=== PATIENT | female | born 1960 | race Caucasian/White ===

== ENCOUNTER 2020-12-02 08:42 | Emergency (ER) | payer BC, SELFPAY ==
[2020-12-02] VITALS (39 sets, daily range): BP systolic 114–178; BP diastolic 52–80; PULSE 57–100; RESP 12–26; TEMP 36.6; O2SAT 97–100
--- NOTE | 2020-12-02 08:30 | RT.EKG_ITS ---
APPROVED REPORT Exam: Resting ECG Reason for Exam: chest pressure Patient Location: E HR:72 bpm ECG Measurements Heart Rate 72 AXIS IN 151 P 74 QRSd 114 QRS 56 QT 427 T 61 QTc 468 Conclusion Sinus rhythm...normal P axis, V-rate 60- 99
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
[2020-12-02 09:10] LABS: Abs Immature Grans 0.02 10^3/uL (0.0-0.06); Absolute Basophil Count 0.01 10^3/uL (0.0-0.2); Absolute Eosinophil Count 0.03 10^3/uL (0.0-0.7); Absolute Lymphocyte Count 1.55 10^3/uL (1.2-3.4); Absolute Monocyte Count 0.41 10^3/uL (0.1-0.8); Absolute Neutrophil Count 6.59 10^3/uL (1.2-6.7); Basophils % 0.1; Eosinophils % 0.3; HCT 42.3 % (36.0-46.0); HGB 14.1 g/dL (11.2-15.7); Immature Grans % 0.2; MCH 30.5 pg (27.0-33.0); MCHC 33.3 % (32.0-36.0); MCV 91.6 fL (80-95); MPV 8.8 fL (8.0-11.0); Monocytes % 4.8; Neutrophils % 76.6; Nucleated RBC 0 %; Platelet Count 256 10^3/uL (130-400); RBC 4.62 10^6/uL (3.93-5.22); RDW 11.5 % (11.7-14.6); RDW-SD 38.9 fL; WBC 8.61 10^3/uL (4.4-10.8)
[2020-12-02] MEDS: Aspirin 81 MG CHEW 324 MG CH (09:10)
[2020-12-02] MEDS: Normal Saline Flush 10 ML SYR IVP ×3 (09:10→10:36)
[2020-12-02 09:27] LABS: ALT 22 U/L (14-59); AST 18 U/L (15-37); Albumin 4.2 g/dL (3.4-5.0); Alkaline Phosphatase 129 U/L (46-116); BUN 17 mg/dL (7-18); Bilirubin, Total 0.6 mg/dL (0.2-1.0); Calcium 9.8 mg/dL (8.5-10.1); Chloride 103 mmol/L (98-107); Estimated GFR 56.37 (mL/min/1.73m2); Glucose 123 mg/dL (74-106); Magnesium 1.9 mg/dL (1.8-2.4); Potassium 3.8 mmol/L (3.5-5.1); Sodium 141 mmol/L (136-145); Total Protein 7.4 g/dL (6.4-8.2); Troponin I < 0.05 ng/mL (<0.06)
--- NOTE | 2020-12-02 09:32 | DI.RAD_ITS ---
Exam(s) XR CHEST 2V PA LATERAL EXAM: XR CHEST 2V PA LATERAL CLINICAL HISTORY: chest discomfort TECHNIQUE: 2D digital imaging was performed. COMPARISON: No exams were available for comparison FINDINGS: MEDIASTINUM: Normal. HEART: Normal. PULMONARY VASCULATURE: Normal. LUNGS: Hyperinflated but clear. PLEURAL SPACE: No pleural effusion or pneumothorax. BONE:Normal. IMPRESSION: Pulmonary hyperinflation. No acute pulmonary findings. DATA REPOSITORY: RADIATION DOSE DELIVERED:
[2020-12-02 09:39] LABS: INR 1.1 (0.9-1.1); PTT Activated 24.2 sec (21.0-27.5); Prothrombin Time 10.7 sec (9.3-11.0)
[2020-12-02 09:43] LABS: D-Dimer 193 ng/mlFEU (<500)
[2020-12-02 09:53] LABS: TSH (W/Ref FT4) 0.02 uIU/mL (0.36-3.74)
[2020-12-02] MEDS: Normal Saline 1,000 ML 500 ML IV (10:00)
[2020-12-02] MEDS: Ondansetron 4 MG/2 ML VIAL IVP (10:00)
--- NOTE | 2020-12-02 10:00 | DI.CT_ITS ---
Exam(s) CT BRAIN NECK CTA EXAM: CT BRAIN NECK CTA CLINICAL HISTORY: SINGH, lightheadedness. TECHNIQUE: Imaging Protocol: Axial CT angiography was performed with multi-slice acquisition and mu lti-planar and/or 3D reconstructions. CONTRAST MATERIAL: Intravenous: Omnipaque 350 Contrast volume:85 ml COMPARISON: No exams were available for comparison FINDINGS: CT Head W/O and W contrast: Ventricles and Extra axial spaces: Normal in size and morphology for the patient's age. Hemorrhage: None. Cerebral parenchyma: Normal. Midline shift: None. Brainstem/Cerebellum: Normal. Calvarium: Normal. Visualized Paranasal sinuses/Mastoids: Clear. Bilateral maxillary antrectomies medial frances. Soft Tissues: Unremarkable. Enhancement: Normal. CTA Brain W: Internal Carotid Arteries: Petrous: Normal. Cavernous: Normal. Cerebral: Normal. Middle Cerebral Arteries: Right: No aneurysm, occlusion or significant stenosis. Left: No aneurysm, occlusion or significant stenosis. Anterior Cerebral Arteries: Right: No aneurysm, occlusion or significant stenosis. Left: No aneurysm, occlusion or significant stenosis. Posterior cerebral Arteries: Right: No aneurysm, occlusion or significant stenosis. Left: No aneurysm, occlusion or significant stenosis. Vertebral Arteries: Right: No aneurysm, occlusion or significant stenosis. Left: No aneurysm, occlusion or significant stenosis. Basilar Artery: No aneurysm, occlusion or significant stenosis. CTA Neck W: Common Carotid: Right: No aneurysm, occlusion or significant stenosis. Left: No aneurysm, occlusion or significant stenosis. External Carotid: Right: No aneurysm, occlusion or significant stenosis. Left: No aneurysm, occlusion or significant stenosis. Internal Carotid: Right: No aneurysm, occlusion or significant stenosis. Left: No aneurysm, occlusion or significant stenosis. Vertebral Artery: Right: No aneurysm, occlusion or significant stenosis. Left: No aneurysm, occlusion or significant stenosis. Lung Apices: Normal. Bones: Normal. Soft Tissues: Normal. IMPRESSION: 1. Normal CTA examination of the [place]. 2. Unremarkable CT Head. 3. Normal CTA examination of the neck. RADIATION DOSE DELIVERED: 1,849.47mGy.cm Total DLP DATA REPOSITORY: All CT scans at this facility are submitted to the National Radiology Data Registry (NRDR) Dose Index Registry (DIR) with the [employer] (ACR). RADIATION OPTIMIZATION: All CT scans at this facility use at least one of these dose optimization te chniques: automated exposure control; mA and/or kV adjustment per patient size (includes targeted exa ms where dose is matched to clinical indication); or iterative reconstruction.
[2020-12-02 10:10] LABS: FREE T4 1.74 ng/dL (0.76-1.46)
--- NOTE | 2020-12-02 10:15 | DI.VRAD_ITS ---
PROCEDURE INFORMATION: Exam: XR Chest Exam date and time: 12/02/2020 9:01 AM Age: 60 years old Clinical indication: Pain; Chest pressure TECHNIQUE: Imaging protocol: XR of the chest. Views: 2 views. COMPARISON: No relevant prior studies available. FINDINGS: Lungs: The lungs are mildly hyperinflated, but clear. Pleural spaces: Unremarkable. No pleural effusion. No pneumothorax. Heart/Mediastinum: Unremarkable. No cardiomegaly. Bones/joints: Unremarkable. IMPRESSION: Mildly hyperinflated, but clear lungs. Dictated and Authenticated by: Adolfo Osborne MD. Ordering:SAM Craft MD
[2020-12-02] MEDS: Normal Saline - Diluent 50 ML VIAL IV (10:33)
[2020-12-02] MEDS: Omnipaque 350 MG/ML 100 ML BTL IJ (10:33)
--- NOTE | 2020-12-02 11:06 | DI.VRAD_ITS ---
PROCEDURE INFORMATION: Exam: CT Angiography Head With Contrast, Arteriography Exam date and time: 12/02/2020 10:06 AM Age: 60 years old Clinical indication: Other: SINGH, lightheadedness TECHNIQUE: Imaging protocol: Computed tomography angiography of the head with contrast. Exam focused on the arteries. 3D rendering (Not supervised by radiologist): MIP and/or 3D reconstructed images were created by the technologist. Radiation optimization: All CT scans at this facility use at least one of these dose optimization techniques: automated exposure control; mA and/or kV adjustment per patient size (includes targeted exams where dose is matched to clinical indication); or iterative reconstruction. Contrast material: OMNIPAQUE 350; Contrast volume: 85 ml; Contrast route: INTRAVENOUS (IV); COMPARISON: No relevant prior studies available. FINDINGS: ANTERIOR CIRCULATION: Right internal carotid artery: Unremarkable. Intracranial segment is patent with no significant stenosis. No aneurysm. Right middle cerebral artery: Unremarkable. No occlusion or significant stenosis. No aneurysm. Right anterior cerebral artery: Unremarkable. No occlusion or significant stenosis. No aneurysm. Left internal carotid artery: Unremarkable. Intracranial segment is patent with no significant stenosis. No aneurysm. Left middle cerebral artery: Unremarkable. No occlusion or significant stenosis. No aneurysm. Left anterior cerebral artery: Unremarkable. No occlusion or significant stenosis. No aneurysm. POSTERIOR CIRCULATION: Right vertebral artery: Unremarkable. No occlusion or significant stenosis. No aneurysm. Left vertebral artery: Unremarkable. No occlusion or significant stenosis. No aneurysm. Basilar artery: Unremarkable. No occlusion or significant stenosis. No aneurysm. Right posterior cerebral artery: Unremarkable. No occlusion or significant stenosis. No aneurysm. Left posterior cerebral artery: Unremarkable. No occlusion or significant stenosis. No aneurysm. Brain: No definite mass, mass effect, or midline shift. Cerebral ventricles: No ventriculomegaly. Bones/joints: Unremarkable. No acute fracture. Soft tissues: Unremarkable. Other findings: Prior bilateral antrectomies. IMPRESSION: No large vessel occlusion. No aneurysm. PROCEDURE INFORMATION: Exam: CT Angiography Neck With Contrast Exam date and time: 12/02/2020 10:06 AM Age: 60 years old Clinical indication: Other: SINGH, lightheadedness TECHNIQUE: Imaging protocol: Computed tomography angiography of the neck with contrast. 3D rendering (Not supervised by radiologist): MIP and/or 3D reconstructed images were created by the technologist. Radiation optimization: All CT scans at this facility use at least one of these dose optimization techniques: automated exposure control; mA and/or kV adjustment per patient size (includes targeted exams where dose is matched to clinical indication); or iterative reconstruction. Contrast material: OMNIPAQUE 350; Contrast volume: 85 ml; Contrast route: INTRAVENOUS (IV); COMPARISON: No relevant prior studies available. FINDINGS: Right common carotid artery: No stenosis. No dissection or occlusion. Right internal carotid artery: No stenosis of the extracranial segment. No dissection or occlusion. Right external carotid artery: No occlusion or stenosis of the origin. Left common carotid artery: No stenosis. No dissection or occlusion. Mild atherosclerotic disease. Left internal carotid artery: No stenosis of the extracranial segment. No dissection or occlusion. Left external carotid artery: No occlusion or stenosis of the origin. Right vertebral artery: No stenosis. No dissection or occlusion. Left vertebral artery: No stenosis. No dissection or occlusion. Soft tissues: Normal. No significant soft tissue swelling. Bones/joints: No acute fracture. IMPRESSION: No stenosis or occlusion. Less than 50% stenosis of the internal carotid arteries bilaterally. REFERENCES: NASCET CRITERIA. The degree of internal carotid artery stenosis is based on NASCET criteria. Normal is no stenosis. Mild is less than 50% stenosis. Moderate is 50-69% stenosis. Severe is 70% to 99% stenosis. Total occlusion is no detectable patent lumen. Dictated and Authenticated by: Leonor Lanier MD. Ordering:SAM Craft MD
== END 2020-12-02 12:25 | disposition home or self-care (01) ==
PROVIDERS: Emergency Provider Physician Assistant
DX: I95.1 Orthostatic hypotension (principal); R42 Dizziness and giddiness; F41.9 Anxiety disorder, unspecified; R07.89 Other chest pain
CPT/HCPCS: 36415; 70496; 70498; 80053; 93005; 96361; 96374; 99285; 71046; 83735; 84439; 84443; 84484; 85025; 85379; 85610; 85730; 93010; 99284; J2405; J3490

== ENCOUNTER 2024-02-10 14:59 | Emergency (ER) | payer BC, SELFPAY ==
[2024-02-10] VITALS (34 sets, daily range): BP systolic 132–163; BP diastolic 49–73; PULSE 56–91; RESP 14–30; TEMP 35.8; O2SAT 96–99
--- NOTE | 2024-02-10 15:00 | RT.EKG_ITS ---
APPROVED REPORT Exam: Resting ECG Reason for Exam: chest pain Patient Location: E HR:82 bpm ECG Measurements Heart Rate 82 AXIS HI 139 P 82 QRSd 106 QRS 64 QT 417 T 73 QTc 486 Conclusion Sinus rhythm...normal P axis, V-rate 60- 99 Probable lateral infarct, old...Q>35mS, abnormal ST-T, V5-6 I aVL
--- OUTSIDE RECORDS SUMMARY | 2024-02-10 15:34 | XMS_ITS | Clinical Summary ---
Author Organization [facility] Address [phone] [facility] [email or web address] [address] Care Team Providers Care Broom Bundler Name Role Phone Gulshan Aquino MD Primary Care Provider Allergies Active Allergy Reactions Criticality Noted Date Comments Codeine Unknown 03/10/2014 Active Problems Problem Noted Date Diagnosed Date Hypothyroidism 03/09/2014 Overview: Hypothyroidism Multinodular goiter 03/09/2014 Overview: Multinodular goiter Osteopenia 03/09/2014 Overview: Osteopenia Family History Medical History Relation Comments Heart attack Father Myocardial infar ction Relation Status Comments Father Social History Tobacco Use Types Packs/Day Years Used Date Smoking Tobacco: Every Day Sex and Gender Information Value Date Recorded Sex Assigned at Not on file Gender Identity Not on file Sexual Orientation Not on file Last Filed Vital Signs Vital Sign Reading Time Taken Comments Blood Pressure 116/71 09/05/2014 11:46 AM EDT Pulse 101 09/05/2014 11:46 AM EDT Temperature - - Respiratory Rate - - Oxygen Saturation - - Inhaled Oxygen Concentration - - Weight 58.1 kg (128 lb) 09/05/2014 11:46 AM EDT Height 160 cm (5' 3) 06/29/2014 10:53 AM EST Body Mass Index 22.67 06/29/2014 10:53 AM EST Plan of Treatment Not on file Medical Devices Not on file Care Teams Broom Bundler Relationship Specialty Start Date End Date Gulshan Aquino MD [address] [address] PCP - General Allergy 02/16/14 Additional Source Comments The information contained in this document represents components of the legal health record. It is not the complete legal health record.[facility]
--- OUTSIDE RECORDS SUMMARY | 2024-02-10 15:34 | XMS_ITS | Continuity of Care Document ---
Author Name [facility] Address [address] [place] [address] Organization [facility] Address [address] [place] [address] Support Name Relationship Address Phone Gulshan Aquino Primary Care Provider [address] [place], [place] [phone] Gulshan Aquino Family Provider [address] [place], [place] [phone] Luz Torres Attending Provider [place] [id number] [address] [address] Allergies, Adverse Reactions, Alerts Allergen Type Severity Reaction Last Updated Verified Status codeine Adverse Reaction Unknown SHAKING, NAUSEA November 16, 2018 Y Active Medications Active Medications Medication Dose Units Route Sig Qty Start Date St [facility] [place] Thyroid 90 MG PO EVERY MORNING Mar 2018 Active Atorvastatin 1 TAB PO DAILY August 18 019 Active Multi-Vitamin Daily 1 TAB PO DAILY Zacarias h 2018 Active L.Acidoph,Paracasei, B.Lactis [Probiotic] 1 EACH PO DAILY November 09, 2018 Active Multivit-Min/Iron/Foli c/Lutein [Centrum Silver Women Tablet] 1 TAB PO DAILY November 09, 2018 Active Simethicone [Phazyme] 180 MG PO DAILY Ju ne 2018 Active Vitamin D3 Complete Caplet 25 MCG PO DAILY November 09, 2018 Active Atorvastatin [Lipitor] 10 MG PO DAILY J une 2018 Active Docusate Sodium 100 MG PO TWICE A D AY PRN For Constipation 60 November 17, 2018 Active Oxycodone [Roxicodone] 5 MG PO EV HILDA 4 HOURS PRN For Moderate Pain (4-6) 5 November 17, 2018 Active Ibuprofen [Motrin] 600 MG PO EVERY 6 HOURS PRN For Mild Pain (1-3) 60 November 17, 2018 Active Discontinued Medications Medication Dose Units Route Sig Qty Start Date Discontinued Date Status [place] Thyroid 15 MG PO EVERY EVENING August 18, 2018 November 09, 2018 Discontinued Problem List Active Problems Medical Problem Onset Date Status 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 Ref. Range Result Co mment Urine Color December 01, 2018 5:18pm Yellow Urine Clarity December 01, 2018 5:18pm Clear Urine pH December 01, 2018 5:18pm 5.0 5.0-8.0 Urine Specific [place] December 01, 2018 5:18pm 1.019 1.003-1.030 Urine Blood December 01, 2018 5:18pm Negative mg/dl Urine Protein December 01, 2018 5:18pm Negative mg/dl Urine Glucose (UA) December 01, 2018 5:18pm Negative mg/dl Urine Ketones December 01, 2018 5:18pm Negative mg/dl Urine Nitrate December 01, 2018 5:18pm Negative Urine Bilirubin December 01, 2018 5:18pm Negative mg/dl Urine Urobilinogen December 01, 2018 5:18pm Normal mg/dl Urine Leukocyte Esterase December 01, 2018 5:18pm Negative Advance Directives Advance Directive Response Recorded Date/ Time Advance Directives No November 05, 2018 2:50pm Health Care Proxy No November 05, 2018 2 :50pm Chief Complaint and Reason for Visit Encounter Admit Date Chief Complaint Reason for V isit Departed Clinical December 01, 2018 11:15am 2 WKS PO AFTER SURGERY ON 11/16/18 Hospital Discharge Instructions No known hospital discharge instructions. Hospital Discharge Medications Medication Dose Units Route Sig Qty Days Order Date Status Instructions [place] Thyroid 15 MG PO EVERY EVENING August 18, 2018 Discontinued [place] Thyroid 90 MG PO EVERY MORNING August 18, 2018 Active Atorvastatin 1 TAB PO DAILY Jul Active Multi-Vitamin Daily 1 TAB PO DAILY August 18, 2018 Active L.Acidoph,Para casei, B.Lactis 1 EACH PO DAILY November 09, 2018 Active Multivit-Min/I eileen/Folic/Lute in 1 TAB PO DAILY November 09, 2018 Active Simethicone 180 MG PO DAILY November 09, 2018 Active Vitamin D3 Complete Caplet 25 MCG PO DAILY November 09, 2018 Active Atorvastatin 10 MG PO DAILY Justin 2018 Active Docusate Sodium 100 MG PO TWICE A DAY PRN For Constipation 60 November 17, 2018 Active Oxycodone 5 MG PO EVERY 4 HOURS PRN For Moderate Pain (4-6) 5 November 17, 2018 Active Ibuprofen 600 MG PO EVERY 6 HOURS PRN For Mild Pain (1-3) 60 November 17, 2018 Active Encounters Encounter Facility Location Admit/Visit Date Discharge/Departure Date Attending Provider Departed Referred [facility] Lab - After Hours Blood Draws December 01, 2018 5:17pm December 01, 2018 5:18pm Luz Torres Departed Clinical [facility] December 01, 2018 2:32pm December 01, 2018 2:33pm Anup Murillo Departed Clinical [facility] December 01, 2018 11:15am December 01, 2018 11:16am Luz Torres Discharged Inpatient [facility] Cmp 7 November 16, 2018 3:00pm November 17, 2018 10:35am Anup Murillo Functional Status Query Response Date Recorded Comment Arousable To Name November 17, 2018 8:00am Comprehension Ability Understands Concepts November 17 8:00am Level of Consciousness Awake Alert Appropriate Follows Commands November 17, 2018 8:00am Patient Behavior Appropriate Cooperative November 17, 2018 8:00am Query Response Date Recorded Comment Oral Care Teeth Brushing November 17, 2018 9:55am Immunizations No known immunizations. Payers Payer Name Policy Type Covered Libertarian Covered Libertarian Id Relationship Subscriber Subscriber Id BC [place] O Blue [employer] Priya Soriano [id number] Self / Same As Patient Priya Soriano [id number] [employer] [place] (Out of State) O Commercial Priya Soriano [id number] Self / Same As Patient Priya Soriano [id number] Self Pay Personal Payment (Doe - No Insurance) Plan of Care No Known Plan of Care Information Social History Query Response Date Recorded Comment Is Anyone Dependent on your Care? No October 3:22pm Lives With Family November 09, 2018 3:22pm Living Situation Private Home November 09, 2018 3:22pm Query Response Start Date Stop Date Smoking Status Current every day smoker Vital Signs Vital Reading Result Reference Range Collection Date/Time Height 1.6 m November 16, 2018 6 :54am Weight 53.977 kg November 17, 2018 9 :17am Temperature 98.7 F 97.6 F-99.6 F November 17, 2018 4:51am Pulse 64 BPM 60-90 November 17, 2018 4 :51am Respiration 18 RPM 12-24 November 17, 2018 4 :51am Pulse Oximetry 98 % 95-100 November 17, 2018 8:00am Blood Pressure Systolic 103 90-140 November 17, 2018 4:51am Blood Pressure Diastolic 42 60-90 Oct 4:51am Body Mass Index 21.1 November 25 9 4:30pm
--- OUTSIDE RECORDS SUMMARY | 2024-02-10 15:34 | XMS_ITS | Encounter Summary ---
Author Organization [facility] Address [phone] [facility] [employer] [place] [address] Care Team Providers Care Salesperson Recreational Vehicles Name Role Phone Gulshan Aquino MD Primary Care Provider Encounter Details Date Type Department Care Team (Latest Contact Info) Description 03/09/2014 12:13 PM EDT - 03/09/2014 11:59 PM EDT Hospital Encounter [facility] [address] [place] [address] Mao Paul MD Discharge Disposition: Home or Self Care Social History Tobacco Use Types Packs/Day Years Used Date Smoking Tobacco: Never Assessed Sex and Gender Information Value Date Recorded Sex Assigned at Not on file Gender Identity Not on file Sexual Orientation Not on file documented as of this encounter Plan of Treatment Not on file documented as of this encounter Visit Diagnoses Not on filedocumented in this encounter Care Teams Salesperson Recreational Vehicles Relationship Specialty Start Date End Date Glushan Aquino MD [address] [address] PCP - General Allergy 02/16/14 documented as of this encounter Additional Source Comments The information contained in this document represents components of the legal health record. It is not the complete legal health record.[facility]
--- OUTSIDE RECORDS SUMMARY | 2024-02-10 15:35 | XMS_ITS | Continuity of Care Document ---
Author Organization [facility] Address [address] [place] [address] Phone Care Team Providers Care Building Associate Name Role Phone Gulshan Aquino Primary Care Provider [phone] Gulshan Aquino Attending Provider Gulshan Aquino Family Provider Chief Complaint and Reason for Visit Chief Complaint CURRENT SMOKER F17.2 10 R10.30 LOWER ABD PAIN Allergies, Adverse Reactions, Alerts Allergen Type Severity Reaction Last Updated Verified Status codeine Adverse Reaction Unknown SHAKING, NAUSEA Nov 9:46am Yes Active Social History Smoking Status Status Start Date End Date Date of Observa tion Smokes tobacco daily (finding) December 22, 2020 9:39am Observation Status Observation Response Date of Response Lives With Family November 09, 2018 3:22pm Additional Data Assigned Sex Female Family History Relationship Condition Age at Onset Recorded Date/T harley family member Malignant neoplasm of colon Unknown Problems Active Problems Medical Problem Onset Date Status 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 Cyst of ovary, left Active Medications Medication Status Dose Units Route Directions Qty Days St art Date End Date Instructions [place] Thyroid Discontinue d 15 MG PO EVERY EVENING August 18, 2018 12:00a m November 09, 2018 3:29p m [place] Thyroid Active 90 MG PO EVERY MORNING August 18, 2018 12:00a m Atorvastatin Active 1 TAB PO DAILY 2018 12:00a m Multi-Vitamin Daily Active 1 TAB PO DAILY August 18, 2018 12:00a m Simethicone (Phazyme) 180 MG capsule Active 180 MG PO DAILY November 09, 2018 12:00a m Multivit-Min- Ffgk-Zs-Iwlud n (Centrum Silver Women) 1 EACH tablet Active 1 TAB PO DAILY November 09, 2018 12:00a m Amita Mireles B. Lactis Active 1 EACH PO DAILY November 09, 2018 12:00a m Vitamin D3 Complete Caplet Active 25 MCG PO DAILY November 09, 2018 12:00a m Atorvastatin Active 10 MG PO DAILY November 17, 2018 12:00a m Docusate Sodium Active 100 MG PO TWICE A DAY 60 November 17, 2018 8:12am Oxycodone Discontinue d 5 MG PO EVERY 4 HOURS 5 November 17, 2018 12:00a m December 22, 2020 10:03 am Ibuprofen Active 600 MG PO EVERY 6 HOURS 60 November 17, 2018 8:22am Medical Equipment Device Date Implanted Device Details MESH SURG RESTORELLE [id number] November 16, 2018 Procedures Procedure Date Performed Status CT lung ca screen low dose March 15, 2022 3: 07pm completed US abdomen complete March 19, 2022 9:36am co mpleted Relevant Diagnostic Tests and/or Laboratory Data Diagnostic Imaging Reports Report Dictated Date/Time Dictated By Status Radiology Report March 19, 2022 9:00am Casie Rodriguez MD completed [facility] at [address] [address] Patient Name: Priya Soriano Medical Record#: [id number] 2 Address: [address] [place] [address] City/State/Zip: [place] [address]: Ilia Aquino Insurance: [employer] (Out o f State) HMO /Age/Sex: 1960/61/F Self Pay Admit/Reg Date: 03/15/[address]: Gulshan Aquino Location: [facility]/ PCP: Gulshan Aquino Date of Service: 03/15/22 Order (s): CT lung ca screen low dose CPT Code: 01772 Report Number: [id number] Reason for Exam: SMOKER Patient name: Priya Soriano Exam: CT lung ca screen low dose Procedure Date and Time: 03/15/2022 3:17 PM Indication: SMOKER Comparison: None. Age: 61 Smoking History: 30 pack years. Status: Current smoker TECHNIQUE: Serial 2.5 mm unenhanced helically acquired images were obtained from the thoracic inlet through the lung bases using low dose protocol. Sagittal and coronal reformatted images are also submitted. Total exam DLP (Dose Length Product) 55 mGy-cm. CT Scanner utilized a dose reduction technique. FINDINGS: MEDIASTINUM/VESSELS: No mediastinal or hilar lymphadenopathy. The mediastinal vascular structures appear unremarkable for patient age. There is dense coronary calcifications. LUNGS: Mild upper lobe central emphysema. Lung nodules: 7 mm groundglass right upper lobe (2:151) Calcified granuloma right upper lobe (2:144) There are multiple scattered impacted bronchi. PLEURA: No pleural effusion. No significant pleural based abnormality. No pneumothorax. SOFT TISSUES/BONES: Unremarkable. UPPER ABDOMEN: Unremarkable IMPRESSION: Mild emphysema Micronodules Multiple impacted bronchi throughout the lungs. Coronary calcifications Lung-RADS: 2 Modifier: S *Lung-RADS Assessment Categories* Category Category Descriptor Management [address] images and/or comparison with prior chest CT exam indicated 1 Negative Continue annual screening with LDCT in 12 months 2 Benign Appearance Continue annual screening with LDCT in 12 months 3 Probably Benign 6 month LDCT 4A Suspicious 3 month LDCT; PET/CT may be used if >= 8 mm solid component 4B Suspicious Chest CT, PET/CT (if >= 8 mm solid component) and/or tissue sampling indicated by comorbidities S Significant Other Finding C Prior lung cancer Dictated By: Casie Rodriguez MD 03/19/22899 Signed By: Casie Rodriguez MD 03/19/22910 TD/TT: 03/19/22899Tech: [id number] cc: [email or web address]* Gulshan Aquino Report Dictated Date/Time Dictated By Status Radiology Report March 19, 2022 11:36am Chriss Lester MD completed [facility] at [address] [address] Patient Name: Priya Soriano Medical Record#: [id number] 2 Address: [address] [place] [address] City/State/Zip: [place] [address]: Ilia Aquino Insurance: Blue [employer] (Out o f State) HMO /Age/Sex: 1960/61/F Self Pay Admit/Reg Date: 03/19/[address]: Gulshan Aquino [facility] PCP: Gulshan Aquino Date of Service: 03/19/22 Order (s): US abdomen complete CPT Code: 27160 Report Number: [id number] Reason for Exam: ABDOMINAL PAIN EXAMINATION: ABDOMINAL ULTRASOUND COMPLETE: CLINICAL INFORMATION: Abdominal pain/right lower quadrant pain; further evaluation. COMPARISON: July 20, 2020. TECHNIQUE: Routine grayscale and color Doppler imaging is provided for interpretation. FINDINGS: Focal scanning right lower quadrant at site of pain is negative. LIVER: Normal echo architecture. No focal hepatic lesion. PANCREAS: Normal. GALLBLADDER: Status post cholecystectomy. BILIARY: No intrahepatic biliary dilatation. CBD measures 7.5 mm. RENAL: The kidneys are normal in size and echotexture with the right kidney measuring [9.8 cm] and the left kidney measuring [9.0] cm in maximal longitudinal dimension. There is no hydronephrosis or nephrolithiasis identified. 10 mm right renal cyst. SPLEEN: The spleen is not enlarged (8.7 cm). No focal splenic lesion. There is no intraperitoneal free fluid identified. The visualized portions of the upper abdominal aorta and IVC appear unremarkable. Doppler interrogation demonstrate hepatopetal portal flow. IMPRESSION: 1. STATUS POST CHOLECYSTECTOMY. 2. NO BILIARY DILATATION. 3. RIGHT LOWER QUADRANT SCANNING IS NEGATIVE. Dictated By: Chriss Lester MD 03/19/22 1136 Signed By: Chriss Lester MD 03/19/22 1203 TD/TT: 03/19/22 1136Tech: [id number] cc: [email or web address]* Gulshan Aquino Advance Directives Advance Directive Response Recorded Date/ Time Advance Directives Yes January 12:37pm Health Care Proxy Yes January 12:37pm Insurance Providers Guarantor Priya Soriano Address [address] [place] [id number] Contact Info. Home Phone: Payer Policy Id Coverage Id Subscriber's Name Subscriber Id Effective Date Expiration Date [facility] Hank [id number] [id number] Priya Soriano [id number] [facility] (Out of State) [facility] [id number] Priya Teran Bo [id number] Self Pay Self N/A Encounters Encounter Location(s) Arrival/Admit Date Discharge/Depart Date Provider(s) Departed Clinical [facility] CAT Scan March 15, 2022 3:03pm March 15, 2022 3:04pm Gulshan Aquino Registered Clinical [facility] Ultrasound March 19, 2022 9:11am Gulshan Aquino
--- OUTSIDE RECORDS SUMMARY | 2024-02-10 15:35 | XMS_ITS | Continuity of Care Document ---
Author Organization [facility] Address [address] [place] [address] Phone Care Team Providers Care Windows Application Developer Name Role Phone Gulshan Aquino Primary Care Provider Gulshan Aquino Attending Provider Gulshan Aquino Family [...] Days St art Date End Date Instructions [place] Thyroid Discontinue d 15 MG PO EVERY EVENING August 18, 2018 12:00a m November 09, 2018 3:29p m [place] Thyroid Active 90 MG PO EVERY MORNING August 18, 2018 12:00a m Atorvastatin Active 1 TAB PO DAILY 2018 12:00a m Multi-Vitamin Daily Active 1 TAB PO DAILY August 18, 2018 12:00a m Simethicone (Phazyme) 180 MG capsule Active 180 MG PO DAILY November 09, 2018 12:00a m Multivit-Min- Pqtz-Qq-Htwxb n (Centrum Silver Women) 1 EACH tablet [...] 19, 2022 9:00am Casie Rodriguez MD completed [facility] at [address] [address] Patient Name: Priya Soriano Medical Record#: [id number] 2 Address: [address] [place] [address] City/State/Zip: [place] [address]: Ilia Aquino Insurance: [employer] (Out o f State) HMO /Age/Sex: 1960/61/F Self Pay Admit/Reg Date: 03/15/[address]: Gulshan Aquino Location: [facility]/ PCP: Gulshan Aquino Date of Service: 03/15/22 Order (s): CT lung ca screen low dose CPT Code: 22364 Report Number: [id number] Reason for Exam: SMOKER Patient name: Priya [...] 19, 2022 11:36am Chriss Lester MD completed [facility] at [address] [address] Patient Name: Priya Soriano Medical Record#: [id number] 2 Address: [address] [place] [address] City/State/Zip: [place] [address]: Ilia Aquino Insurance: [employer] (Out o f State) HMO /Age/Sex: 1960/61/F Self Pay Admit/Reg Date: 03/19/[address]: Gulshan Aquino [facility] PCP: Gulshan Aquino Date of Service: 03/19/22 Order (s): US abdomen complete CPT Code: 99145 Report Number: [id number] Reason for Exam: ABDOMINAL PAIN EXAMINATION: ABDOMINAL [...] 12:37pm Insurance Providers Guarantor Priya Soriano Address [address] [place] [id number] Contact Info. Home Phone: Payer Policy Id Coverage Id Subscriber's Name Subscriber Id Effective Date Expiration Date [facility] Hank [id number] Priya Soriano [id number] [facility] (Out of State) [facility] [id number] Priya Teran Bo [id number] Self Pay Self N/A Encounters Encounter Location(s) Arrival/Admit Date Discharge/Depart Date Provider(s) Departed Clinical [facility]- CAT Scan March 15, 2022 3:03pm March 15, 2022 3:04pm Gulshan Aquino Departed [facility] Ultrasound March 19, 2022 9:11am March 19, 2022 9:12am Gulshan Aquino
--- OUTSIDE RECORDS SUMMARY | 2024-02-10 15:35 | XMS_ITS | Continuity of Care Document ---
Author Name [facility] Address [address] [place] [address] Organization [facility] Address [address] [place] [address] Support Name Relationship Address Phone Gulshan Aquino Primary Care Provider [address] [place], [place] [phone] Gulshan Aquino Family Provider [address] [place], [place] [phone] Anup Murillo Attending Provider [address] [address] Allergies, Adverse Reactions, Alerts Allergen Type Severity Reaction Last Updated Verified Status codeine Adverse Reaction Unknown SHAKING, NAUSEA November 16, 2018 Y Active Medications Active Medications Medication Dose Units Route Sig Qty Start Date St [facility] [place] Thyroid 90 MG PO EVERY MORNING Jul Active Atorvastatin 1 TAB PO DAILY August [...] Sig Qty Start Date Discontinued Date Status [place] Thyroid 15 MG PO EVERY EVENING August [...] 01, 2018 5:18pm 5.0 5.0-8.0 Urine Specific [place] December 01, 2018 5:18pm 1.019 1.003-1.030 Urine [...] V isit Departed Clinical December 01, 2018 2:32pm 2 WEEKS POST OP ON 11/16/18 Hospital Discharge Instructions No known hospital discharge instructions. Hospital Discharge Medications Medication Dose Units Route Sig Qty Days Order Date Status Instructions [place] Thyroid 15 MG PO EVERY EVENING August 18, 2018 Discontinued [place] Thyroid 90 MG PO EVERY MORNING August [...] 2018 Active Atorvastatin 10 MG PO DAILY Oct Active Docusate Sodium 100 MG PO TWICE A DAY PRN For Constipation 60 November 17, 2018 Active Oxycodone 5 MG PO EVERY 4 HOURS PRN For Moderate Pain (4-6) 5 November 17, 2018 Active Ibuprofen 600 MG PO EVERY 6 HOURS PRN For Mild Pain (1-3) 60 November 17, 2018 Active Encounters Encounter Facility Location Admit/Visit Date Discharge/Departure Date Attending Provider Departed Referred [facility] Lab - After Hours Blood Draws December 01, 2018 5:17pm December 01, 2018 5:18pm Luz Torres Departed Clinical [facility] December 01, 2018 2:32pm December 01, 2018 2:33pm Anup Murillo Departed Clinical [facility] December 01, 2018 11:15am December 01, 2018 11:16am Luz Torres Discharged Inpatient [facility] Cmp 7 November 16, 2018 3:00pm [...] immunizations. Payers Payer Name Policy Type Covered Democrat Covered Democrat Id Relationship Subscriber Subscriber Id BC [place] O Blue Commercial Priya Soriano [id number] Self / Same As Patient Priya Soriano [id number] [facility] (Out of State) O Commercial Priya Soriano [id number] Self / Same As Patient Priya Soriano [id number] Self Pay Personal Payment (Doe - No [...]
--- OUTSIDE RECORDS SUMMARY | 2024-02-10 15:35 | XMS_ITS | Continuity of Care Document ---
Author Organization [facility] Address [address] [place] [address] Phone Care Team Providers Care Human Resources File Clerk Name Role Phone Gulshan Aquino Primary Care Provider Gulshan Aquino Attending Provider [phone] Gulshan Aquino Family Provider Allergies, Adverse Reactions, Alerts Allergen Type Severity Reaction Last Updated Verified Status codeine Adverse Reaction Unknown SHAKING, NAUSEA Justin e 2018 12:30pm Yes Active Medications Medication Status Dose Units Route Directions Qty Days St art Date End Date Instructions [place] Thyroid Discontinue d 15 MG PO EVERY EVENING August 18, 2018 10:16a m November 09, 2018 3:29p m [place] Thyroid Active 90 MG PO EVERY MORNING August 18, 2018 10:16a m Atorvastatin Active 1 TAB PO DAILY 2018 10:16a m Multi-Vitamin Daily Active 1 TAB PO DAILY August 18, 2018 10:20a m L.Acidoph,Par acasei, B.Lactis (Probiotic) 1 EACH Capsule Active 1 EACH PO DAILY November 09, 2018 3:37pm Multivit-Min/ Iron/Folic/Monika tein (Centrum Silver Women Tablet) 1 EACH Tablet Active 1 TAB PO DAILY November 09, 2018 3:37pm Simethicone (Phazyme) 180 MG Capsule Active 180 MG PO DAILY November 09, 2018 3:37pm Vitamin D3 Complete Caplet Active 25 MCG PO DAILY November 09, 2018 3:37pm Atorvastatin (Lipitor) 10 MG Tablet Active 10 MG PO DAILY November 17, 2018 8:11am Docusate Sodium Active 100 MG PO TWICE A DAY 60 November 17, 2018 8:12am Oxycodone (Roxicodone) 5 MG Tablet Active 5 MG PO EVERY 4 HOURS 5 November 17, 2018 8:12am Ibuprofen (Motrin) 600 MG Tablet Active 600 MG PO EVERY 6 HOURS 60 November 17, 2018 8:22am Problems Active Problems Medical Problem Onset Date Status 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 Cyst of ovary, left Active Procedures Procedure Date Performed Status US abdomen complete July 20, 2020 7:24am c ompleted US pelvic complete July 20, 2020 7:24am co mpleted Relevant Diagnostic Tests and/or Laboratory Data Diagnostic Imaging Reports Report Dictated Date/Time Dictated By Status Radiology Report July 20, 2020 8:36am Casie Rodriguez MD completed [facility] [place] [address] Patient Name: Priya Soriano Medical Record#: [id number] 2 Address: [address] [place] [address] City/State/Zip: [place] [address]: Connie Aquino Insurance: [employer] (Out o f State) HMO /Age/Sex: 1960/60/F Self Pay Admit/Reg Date: 07/20/[address]: Gulshan Aquino Location: [facility]/ PCP: Gulshan Aquino Date of Service: 07/20/20 Order (s): US abdomen complete CPT Code: 70930 Report Number: [id number] Reason for Exam: ABDOMINAL PAIN Patient name: Priya Soriano Exam: US abdomen complete Technique: Complete ultrasound evaluation of the abdomen. Procedure Date and Time: 07/20/2020 7:40 AM Indication: ABDOMINAL PAIN Comparison: None FINDINGS: LIVER: No focal lesions or fatty infiltration. GALLBLADDER: The gallbladder is surgically absent. BILIARY: There is no biliary ductal dilatation. CBD measures 4 mm. PANCREAS: The visualized portions of the pancreas are unremarkable. SPLEEN: No splenomegaly. PERITONEUM: No free fluid. KIDNEYS: Normal size and echo-texture bilaterally. No hydronephrosis or apparent stones. The right kidney is 10.4 cm and the left kidney is 9.2 cm in maximum sagittal length. Simple cyst in the lower pole of the right kidney measures 10 x 8 mm. ABDOMINAL AORTA AND INFERIOR VENA CAVA: The visualized portions of the abdominal aorta and IVC are unremarkable. IMPRESSION: Small simple cyst in the right kidney. Dictated By: Casie Rodriguez MD 07/20/20 0836 Signed By: Casie Rodriguez MD 07/20/20 0838 TD/TT: 07/20/20 0836Tech: [id number] cc: [id number]* Gulshan Aquino Radiology Report July 20, 2020 8:38am Chriss Lester MD [facility] [place] [address] Patient Name: Priya Sroiano Medical Record#: [id number] 2 Address: [address] [place] [address] City/State/Zip: [place] [address]: Connie Aquino Insurance: [employer] (Out o f State) HMO /Age/Sex: 1960/60/F Self Pay Admit/Reg Date: 07/20/[address]: Gulshan Aquino Location: [facility]/ PCP: Gulshan Aquino Date of Service: 07/20/20 Order (s): US pelvic complete CPT Code: 17126 Report Number: [id number] Reason for Exam: PELVIC PAIN EXAMINATIONS: ULTRASOUND PELVIS. CLINICAL INFORMATION: HFMET How is patient transported: Ambulatory Reason for Exam: PELVIC PAIN Read Ready Status Ready COMPARISON: CT abdomen pelvis October 20, 2018. TECHNIQUE: Transabdominal imaging was performed. Doppler interrogation and spectral analysis was performed. FINDINGS: Previously identified 16 cm cystic pelvic mass is no longer present. Status post hysterectomy. Status post bilateral oophorectomy. There is no free fluid in the cul-de-sac. IMPRESSION: 1. NO MASS OR FREE FLUID. 2. STATUS POST HYSTERECTOMY AND BILATERAL OOPHORECTOMY. Dictated By: Chriss Lester MD 07/20/20 0838 Signed By: Chriss Lester MD 07/20/20 0842 TD/TT: 07/20/20 0838Tech: [id number] cc: [email or web address]* Gulshan Aquino Chief Complaint and Reason for Visit Chief Complaint RECURRENT ABD PAIN, BASIN Encounters Encounter Location(s) Arrival/Admit Date Discharge/Depart Date Provider(s) Departed Referred [facility] Ultrasound July 20, 2020 7:23am July 20, 2020 7:24am uGlshan Aquino Assessments No Assessments Information Available Family History Relationship Condition Age at Onset Recorded Date/T harley family member Malignant neoplasm of colon Unknown Functional Status No Functional Status information available Goals Goals may be documented in an alternate section. Mental Status No Mental Status Information Available Medical Equipment Implanted Devices Device Date Implanted Device Details MESH SURG RESTORELLE [id number] November 16, 2018 GYPSY: Insurance Providers Guarantor Priya Soriano Address [address] [address] Contact Info. Home Phone: Payer Policy Id Coverage Id Subscriber's Name Subscriber Id Effective Date Expiration Date [facility] Hank [id number] Priya Soriano [id number] [facility] (Out of State) [facility] [id number] Priya Soriano [id number] Self Pay Self N/A Social History Smoking Status Status Date of Observation Smokes tobacco daily (finding) October 4:22pm Observation Status Observation Response Date of Response Lives With Family November 09, 2018 3:22pm Assigned Sex Female
--- OUTSIDE RECORDS SUMMARY | 2024-02-10 15:35 | XMS_ITS | Continuity of Care Document ---
Author Name [facility] Address [address] [place] [address] Organization [facility] Address [address] [place] [address] Support Name Relationship Address Phone Gulshan Aquino Primary Care Provider [address] [place], [place] [phone] Gulshan Aquino Family Provider [address] [place] [address] Anup Murillo Admit Provider [address] [id number] Anup Murillo Attending Provider [address] [address] Allergies, Adverse Reactions, Alerts Allergen Type Severity Reaction Last Updated Verified Status codeine Adverse Reaction Unknown SHAKING, NAUSEA November 16, 2018 Y Active Medications Active Medications Medication Dose Units Route Sig Qty Start Date [facility] [place] Thyroid 90 MG PO EVERY MORNING Jul Active Atorvastatin 1 TAB PO DAILY August 18 019 Active Multi-Vitamin Daily 1 TAB PO DAILY [facility] 2018 Active L.Acidoph,Paracasei, B.Lactis [Probiotic] 1 EACH [...] Sig Qty Start Date Discontinued Date Status [place] Thyroid 15 MG PO EVERY EVENING August 18, 2018 November 09, 2018 Discontinued Problem List Active Problems Medical Problem Onset Date Status 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 Advance Directives Advance Directive Response Recorded Date/ Time Advance Directives No November 05, 2018 2:50pm Health Care Proxy No November 05, 2018 2 :50pm Chief Complaint and Reason for Visit Encounter Admit Date Chief Complaint Reason for V isit Discharged Inpatient November 16, 2018 3:00pm OVARY CYST, PELVIC ORGAN PROLAPSE, CYSTOCELE Cyst of ovary, left Prolapse of vaginal vault after hysterectomy Hospital Discharge Instructions Additional Discharge Instructions Avoid heavy lifting for the next few weeks. Instruction/Education Provided The priyanka ring is a 58 yo who was admitted with stage 3 uterovaginal prolapse and a large ovarian cyst. On 11/16/18 she underwent a TLH-BSO, laparoscopic sacrocolpopexy. The case was uncomplicated, please see operative report for more details. The patient's post-op course was also uncomplicated. On post-op day #1 she was ambulating and voiding without issue and her pain was well-controlled. She was discharged home on POD#1 and will have follow up with Dr. Torres in 2 weeks. Hospital Discharge Medications Medication Dose Units Route Sig Qty Days Order Date Status Instructions [place] Thyroid 15 MG PO EVERY EVENING August 18, 2018 Discontinued [place] Thyroid 90 MG PO EVERY MORNING August [...] Location Admit/Visit Date Discharge/Departure Date Attending Provider Discharged Inpatient [facility] Cmp 7 November 16, 2018 3:00pm November 17, 2018 10:35am Anup Murillo Departed Referred [facility] HF CAT Scan October 20, 2018 10:10am October 20, 2018 10:11am Anup Murillo Encounter Diagnosis Onset Date Cyst of ovary, left Prolapse of vaginal vault after hysterec aaliyah Functional Status Query Response Date Recorded Comment [...] immunizations. Payers Payer Name Policy Type Covered Alliance Party Covered Alliance Party Id Relationship Subscriber Subscriber Id BC [place] O Blue Commercial Priya Soriano [id number] Self / Same As Patient Priya Soriano [id number] Blue Cross (Out of State) O Commercial Priyakarley Soriano [id number] Self / Same As Patient Priya Soriano [id number] Self Pay Personal Payment (Doe - No Insurance) Plan of Care Instructions The patient is a 58 yo 02 who was admitted with stage 3 uterovaginal prolapse and a large ovarian cyst. On 11/16/18 she underwent a TLH-BSO, laparoscopic sacrocolpopexy. The case was uncomplicated, please see operative report for more details. The patient's post- op course was also uncomplicated. On post-op day #1 she was ambulating and voiding without issue and her pain was well-controlled. She was discharged home on POD#1 and will have follow up with Dr. Torres in 2 weeks. Social History Query Response Date Recorded Comment [...] Oct 4:51am Body Mass Index 21.1 November 17 9 9:13am
--- OUTSIDE RECORDS SUMMARY | 2024-02-10 15:35 | XMS_ITS | Continuity of Care Document ---
Author Name [facility] Address [address] [place] [address] Organization [facility] Address [address] [id number] Allergies, Adverse Reactions, Alerts Allergen Type Severity Reaction Last Updated Verified Status codeine Adverse Reaction Unknown SHAKING, NAUSEA November 16, 2018 Y Active Medications Active Medications Medication Dose Units Route Sig Qty Start Date [facility] [place] Thyroid 90 MG PO EVERY MORNING Jul Active Atorvastatin 1 TAB PO DAILY August 18 019 Active Multi-Vitamin Daily 1 TAB PO DAILY [facility] 2018 Active L.Acidoph,Paracasei, B.Lactis [Probiotic] 1 EACH PO DAILY November 09, 2018 Active Multivit-Min/Iron/Foli c/Lutein [Centrum Silver Women Tablet] 1 TAB PO DAILY November 09, 2018 Active Simethicone [Phazyme] 180 MG PO DAILY Ju 2018 Active Vitamin D3 Complete Caplet 25 [...] Sig Qty Start Date Discontinued Date Status [place] Thyroid 15 MG PO EVERY EVENING August 18, 2018 November 09, 2018 Discontinued Problem List Active Problems Medical Problem Onset Date Status 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 Relevant Diagnostic Tests and/or Laboratory Data Laboratory Results Test Date/Time Result Interp. Ref. Range Result Co mment Urine Color April 12, 2019 11:59pm Yellow Urine Appearance April 12, 2019 11:59pm Clear Urine Specific [place] April 12, 2019 11:59pm 1.015 Urine pH April 12, 2019 11:59pm 5.5 Urine Glucose April 12, 2019 11:59pm Negative Urine Bilirubin April 12, 2019 11:59pm Negative Urine Ketones April 12, 2019 11:59pm Negative Urine Occult Blood April 12, 2019 11:59pm Negative Urine Protein April 12, 2019 11:59pm Negative Urine Nitrite April 12, 2019 11:59pm Negative Urine Leukocyte Esterase April 12, 2019 11:59pm Negative Urine WBC April 12, 2019 11:59pm None seen /HPF Urine RBC April 12, 2019 11:59pm None seen /HPF Urine Squamous Epithelial Cells April 12, 2019 11:59pm None seen /HPF Urine Bacteria April 12, 2019 11:59pm None seen /HPF Urine Hyaline Casts April 12, 2019 11:59pm None seen /LPF Urine Culture Reflexed April 12, 2019 11:59pm No culture indicated THIS TEST WAS PERFORMED AT: [facility] [address] [address] AURE ISAACS MD Hospital Discharge Instructions No known hospital discharge instructions. Hospital Discharge Medications Medication Dose Units Route Sig Qty Days Order Date Status Instructions [place] Thyroid 15 MG PO EVERY EVENING August 18, 2018 Discontinued [place] Thyroid 90 MG PO EVERY MORNING August [...] Date Discharge/Departure Date Attending Provider Departed Referred [facility] Results April 13, 2019 1:45pm April 13, 2019 1:46pm Departed Referred [facility] Lab - After Hours Blood Draws December 01, 2018 5:17pm December 01, 2018 5:18pm Luz Torres Discharged Inpatient [facility] Cmp 7 November 16, 2018 3:00pm November 17, 2018 10:35am Anup Murillo Functional Status No known functional status. Immunizations No known immunizations. Payers Payer Name Policy Type Covered Green Party Covered Green Party Id Relationship Subscriber Subscriber Id BC [place] H[place] [employer] Priya Soriano [id number] Self / Same As Patient Priya Soriano [id number] Blue Cross (Out of State) HMO Commercial Priya Soriano [id number] Self / Same As Patient Priya Soriano [id number] Self Pay Personal Payment (Doe - No Insurance) Plan of Care No Known Plan of Care Information Social History Query Response Date Recorded Comment Lives With Family November 09, 2018 3:22pm Query Response Start Date Stop Date Smoking Status Current every day smoker Vital Signs No known vital signs results.
--- OUTSIDE RECORDS SUMMARY | 2024-02-10 15:35 | XMS_ITS | Continuity of Care Document ---
Author Name [facility] Address [address] [place] [address] Organization [facility] Address [address] [place] [address] Support Name Relationship Address Phone Gulshan Aquino Primary Care Provider [address] [place], [place] [phone] Gulshan Aquino Family Provider [address] [place], [place] [phone] Luz Torres Attending Provider [address] [place] [phone] [address] [address] Allergies, Adverse Reactions, Alerts Allergen Type Severity Reaction Last Updated Verified Status codeine Adverse Reaction Unknown SHAKING, NAUSEA November 16, 2018 Y Active Medications Active Medications Medication Dose Units Route Sig Qty Start Date [facility] [place] Thyroid 90 MG PO EVERY MORNING Mar [...] Sig Qty Start Date Discontinued Date Status [place] Thyroid 15 MG PO EVERY EVENING August [...] 01, 2018 5:18pm 5.0 5.0-8.0 Urine Specific [place] December 01, 2018 5:18pm 1.019 1.003-1.030 Urine [...] Chief Complaint Reason for V isit Departed Referred December 01, 2018 5:17pm R39.14 Hospital Discharge Instructions No known hospital discharge instructions. Hospital Discharge Medications Medication Dose Units Route Sig Qty Days Order Date Status Instructions [place] Thyroid 15 MG PO EVERY EVENING August 18, 2018 Discontinued [place] Thyroid 90 MG PO EVERY MORNING August [...] Date Discharge/Departure Date Attending Provider Departed Referred [facility] Lab - After Hours Blood Draws December 01, 2018 5:17pm December 01, 2018 5:18pm Lzu Torres Departed Clinical [facility] Clinical Staff [facility] December 01, 2018 2:32pm December 01, 2018 2:33pm Anup Murillo Departed Clinical [facility] Clinical Staff [facility] Clinic December 01, 2018 11:15am December 01, 2018 11:16am Luz Torres Discharged Inpatient [facility] Cmp 7 November 16, 2018 3:00pm [...] BC [place] O Blue Commercial Priya Soriano [id number] Self / Same As Patient Priya Soriano [id number] Blue Cross (Out of State) O Commercial Priyakarley Soriano [id number] [id number] Self / Same As Patient Priya Soriano [id number] Self Pay Personal Payment (Doe - No [...]
--- OUTSIDE RECORDS SUMMARY | 2024-02-10 15:35 | XMS_ITS | Data Portability ---
Author Organization [facility] Address [address] [address] Care Team Providers Care [place]ow [employer] Barn Technician Name Role Phone RODOLFO ARIAS Primary Care Provider Assessment Encounter Date Assessment Date Assessment LastModified by Organization Details LastModified Time 12/01/2018 12/01/2018 58-year-old G2, P2 status post TLH-BSO and sacrocolpopexy. I met with Priya and her daughter to review the benign pathology and operative procedure. She may follow-up PRN. [email or web address] Not available 12/01/2018 11:24:01 12/01/2018 12/01/2018 She is here for a postop check s/p Laparoscopic sacrocolpopexy, cystoscopy. She has no incontinence, prolapse or voiding dysfunction. She is recovering well from surgery. She will follow up at 3 months. [email or web address] Not available 12/01/2018 15:19:35 04/12/2019 04/12/2019 She is here for a postop check s/p Laparoscopic sacrocolpopexy, cystoscopy. She has only slight incontinence, and no prolapse or voiding dysfunction. She has recovered well from surgery. She will follow up at 12 months. [email or web address] Not available 04/12/2019 14:42:47 09/25/2020 09/25/2020 60-year-old female with benign annual exam. History of hysterectomy with benign pathology and no history of abnormal Pap smears in the past, Pap smear screening can be stopped. Mammogram: Patient prefers to call herself to schedule her mammogram, so agreed. Reasons to call discussed. Annual 1 year. [email or web address] Not available 09/29/2020 14:39:10 07/18/2021 07/18/2021 Priya has no evidence of a problem that I can tell. Possibly she had a small superficial infection which is now resolved. She needs no further surgical care is to follow-up with her PCP for any other related matters. [email or web address] Not available 07/18/2021 10:57:33 Plan of Treatment Reminders Order Date Submit Date Provider Last Modified By Organization Details Last Modified Time Details Appointments None recorded. Lab urinalysis complete, reflex culture 2018 019 [facility], [address] [place], [address], 9 17:46:01 urinalysis complete, reflex culture 2018 019 [place] [employer] [facility], [address] [place] [address] [address], [place], [address], 9 13:57:53 Referral None recorded. Procedures None recorded. Surgeries None recorded. Imaging None recorded. Medication Orders None recorded. Patient TargetsNo targets recorded. Patient InstructionsNo instructions recorded. Reason for Referral Urogynecologist Referral for Urinary incontinence Referring Physician: Irwin Trejo SUBMARINE ELEMENT COORDINATOR, Encounter Date: 08/14/2018 Gynecologic Oncologist Refer ral for Neoplasm of uncertain behavior of ovary referral for 17 cm ovarian cyst in postmenopausal women Referring Physician: Irwin Trejo SUBMARINE ELEMENT COORDINATOR, Encounter Date: 09/10/2018 Results Created Date Observation Date Name Description Value Unit Range Abnormal Flag Note LastModifiedBy Organization Detail LastModifiedTime 11/10/1911/10/2018 CBC white blood cell count 7.4 thous and/u L 3.8-10 .8 normal Not Available [employer] [place] [facility] [address], [address], 11/10/2018 00:48:55 11/10/19 19 11/10/2018 CBC red blood cell count 4.59 kristen on/uL 3.80-5 .10 normal Not Available [facility] [address] [place], [address], 11/10/2018 00:48:55 11/10/1911/10/2018 CBC hemoglobin 13.9 g/dL 11.7-1 5.5 normal Not Available [facility] [place] [facility] [address], [place], [address], 11/10/2018 00:48:55 11/10/1911/10/2018 CBC hematocrit 41.1 % 35.0-4 5.0 normal Not Available [facility] [place] [facility] [address], [place], [address], 11/10/2018 00:48:55 11/10/1911/10/2018 CBC MCV 89.5 fL 80.0-1 00.0 normal Not Available [facility] [place] [facility] [address], [place], [address], 11/10/2018 00:48:55 11/10/1911/10/2018 CBC MCH 30.3 pg 27.0-3 3.0 normal Not Available [facility] [place] [facility] [address], [place], [address], 11/10/2018 00:48:55 11/10/1911/10/2018 CBC MCHC 33.8 g/dL 32.0-3 6.0 normal Not Available [facility] [address], [place], [address], 11/10/2018 00:48:55 11/10/1911/10/2018 CBC RDW 11.5 % 11.0-1 5.0 normal Not Available [facility] [address], [place], [address], 11/10/2018 00:48:55 11/10/1911/10/2018 CBC platelet count 346 thous and/u L 140-40 0 normal Not Available [facility] [place] [facility] [address] [place], [place], [address], 11/10/2018 00:48:55 11/10/1911/10/2018 CBC MPV 8.7 fL 7.5-12 .5 normal Not Available [facility] [place] [facility] [address] [place], [place], [address], 11/10/2018 00:48:55 11/10/1911/10/2018 BMP, serum or plasm a glucose 95 mg/dL 65-99 normal Fasti ng refer ence inter mariluz Not Available [facility] [address] [place], [place], [address], 11/10/2018 01:15:33 11/10/1911/10/2018 BMP, serum or plasm a urea nitrogen (BUN) 21 mg/dL 7-25 normal Not Available [facility] [address], [place], [address], 11/10/2018 01:15:33 11/10/1911/10/2018 BMP, serum or plasm a creatinine 0.82 mg/dL 0.50-1 .05 normal For patie nts >49 years of age, the refer ence limit for Creat inine is appro ximat zach 13% highe r for peopl e ident ified as Afric an-Am joesph n. Not Available [facility] [address], [place], [address], 11/10/2018 01:15:33 11/10/1911/10/2018 BMP, serum or plasm a eGFR non-afr. belizean 78 mL/mi n/1.7 3m2 > or = 60 normal Not Available [facility] [address], [place], [address], 11/10/2018 01:15:33 11/10/19 19 11/10/2018 BMP, serum or plasm a eGFR 91 mL/mi n/1.7 3m2 > or = 60 normal Not Available [facility] [place] [facility] [address] [place], [address], 11/10/2018 01:15:33 11/10/1911/10/2018 BMP, serum or plasm a BUN/creatini ne ratio NOT APPLIC ABLE (calc ) 6-22 normal Not Available [facility] [address] [place], [address], 11/10/2018 01:15:33 11/10/1911/10/2018 BMP, serum or plasm a sodium 142 mmol/ L 135-14 6 normal Not Available [facility] [address] [place], [address], 11/10/2018 01:15:33 11/10/1911/10/2018 BMP, serum or plasm a potassium 4.3 mmol/ L 3.5-5. 3 normal Not Available [facility] [address] [place], [place], [address], 11/10/2018 01:15:33 11/10/1911/10/2018 BMP, serum or plasm a chloride 104 mmol/ L 98-110 normal Not Available [facility] [address] [place], [address], 11/10/2018 01:15:33 11/10/1911/10/2018 BMP, serum or plasm a carbon dioxide 31 mmol/ L 20-32 normal Not Available [facility] [address] [place], [address], 11/10/2018 01:15:33 11/10/1911/10/2018 BMP, serum or plasm a calcium 9.7 mg/dL 8.6-10 .4 normal Not Available [facility] [place] [facility] [address], [place], [address], 11/10/2018 01:15:33 11/16/19 19 11/15/2018 [facility] cytol ogy [id number] Final Diagn osis Pelvi c washi ng: NEGAT KAILA FOR MALIG NANT CELLS . React kaila mesot larry l cells and chron ic infla mmato ry cells . Elect jayy pettit Mary d Out By jesika/ 019 Polina ruiz M.D., Ph.D. HANNY Al( CP) Sign Out Date: 2018 [facility] T[facility] OF PATHO LOGY By this signa ture, I attes t that the above diagn osis is based upon my perso nal exami natio n of the slide s and /or other mater ial indic ated in the diagn osis. Clini leann Histo ry { Clini leann Histo ry Not Provi ded } Sourc e of Speci men(s ) Pelvi c washi ng Gross Descr iptio n Pelvi c washi ng: Recei bjorn 50cc clear orang e fluid label ed with the patie nt's name. 2 autoc ytes prepa red, 1 cell block submi tted in casse tte A1/LA Not Available [facility] ? Lab [address], [place], [address] 11/19/2018 07:28:09 11/17/19 19 11/16/2018 [facility] surgi leann patho logy [id number] Submi tting MD: Polina jiménez II, MD Final Diagn osis A. Uteru s, left tube and ovary , hyste recto my and salpi mccarthy-o ophor ectom y: - Cervi x with nabot hian cysts . - Inact kaila endom etriu m. - Uteri ne leiom yomat a. - Ovary with nodul ar corti leann hyper plasi a and fibro theco ma. - Fallo pian tube with no speci fic patho logic gross e. B. Right ovary and tube, salpi mccarthy-o ophor ectom y: - Ovary with mucin ous cysta denom a. - Fallo pian tube with no speci fic patho logic gross e. Anthony pettit Mary d Out By sko/ 019 etl cruzito cooper MD Sign- out Date: 2018 [facility] DE[facility] TMENT OF PATHO LOGY By this signa ture, I attes t that the above diagn osis is based upon my perso nal exami natio n of the slide s and /or other mater ial indic ated in the diagn osis. ____ Clini leann Histo ry Ovari an cyst, pelvi c organ prola pse Organ s or Tissu es Submi tted A: Uteru s, left tube and ovary B: Right ovary and tube Gross Descr iptio n A. Recei bjorn in forma isaac label ed with the patie nt's name is a 77.5 g uteru s with attac hed left fallo pian tube and ovary , which is 7 cm from fundu s to cervi x, 4.5 cm from cornu to cornu , and 3.5 cm from anter ior to poste rior dimen sions . The 3 x 2.5 cm exoce rvix is cover ed by evans-w delia glist ening mucos a and displ ays a centr al 1 cm linea r os. The endoc ervic al canal is 2.7 cm in lengt h and has a evans-w delia rugos e mucos a. Noted are multi ple subse lori , intra mural , and submu cosal endom etria l nodul es (2.5 cm in great est dimen marco a) withi n the anter ior and poste rior uteri ne wall. The trian gular endom etria l cavit y has a hemor rhagi c endom etria l linin g avera ging 0.1 cm in thick ness. The myome trium is evans and trabe culat ed measu ring up to 2 cm in thick ness. The seros al surfa ce is evans-w delia treasure h and glist ening . The left light purpl e fimbr iated fallo pian tube is 6.5 cm in lengt h and up to 0.[address]. The seros al surfa ce is treasure h glist ening with multi ple parat ubal cysts 0.2 cm in great est dimen marco a. Secti oning revea ls a pinpo int lumen . The left ovary has a light yello w treasure h and lobul ated outer surfa ce. Secti oning revea ls a light yello w cut surfa ce. Repre senta tive secti ons are submi tted in casse ttes as follo ws: A1 anter ior cervi x A2 poste rior cervi x A3 anter ior endom yomet rium with first nodul e, full thick ness A4 anter ior endom yomet rium with secon d nodul e, full thick ness A5 anter ior endom yomet rium with third nodul e, full thick ness A6 poste rior endom yomet rium with fourt h nodul e, full thick ness A7 poste rior endom yomet rium with fifth nodul e, full thick ness A8 poste rior endom yomet rium with three addit ional nodul es, full thick ness A 9 left fallo pian tube with parat ubal cyst A10 left ovary B. Recei bjorn in forma isaac is a previ ously disru pted ovari an cyst measu ring 12 x 12 x 2 cm with attac hed right fallo pian tube. The outer surfa ce of ovari an cyst appea rs evans-w delia treasure h and cereb rifor m. The outer surfa ce is inked blue. Secti oning of the ovari an cyst revea ls a evans-w delia treasure h wall with two thick ened areas measu ring 15 x 7 cm and 7 x 7 cm. Proba ble resid ual katy l ovari an paren chyma is ident ified . The fimbr iated right fallo pian tube measu res 5 cm in lengt h by up to 0.[address]. The seros a appea rs treasure h and glist ening with multi ple parat ubal cysts measu ring 0.2 cm in great est dimen marco a. Secti oning revea ls a pinpo int lumen . Repre senta tive secti ons are submi tted as follo ws: B14 cyst wall, repre senta tive B5 proba ble katy l ovari an paren chyma B6 right fallo pian tube with parat ubal cyst tc tc/ 019 Dian SELLERS Not Available [facility] ? [facility] [address] [facility] [address], [place], [address] 11/20/2018 14:27:17 12/02/1912/01/2018 UA, urina lysis refle x cultu re color,urine Yellow yellow Not Available [facility] ? [facility] [address] [facility] [address], [place], [address] 12/01/2018 17:46:01 12/02/1912/01/2018 UA, urina lysis refle x cultu re clarity,urin e Clear clear Not Available [facility] ? Lab [address] [facility] [address], [place], [address] 12/01/2018 17:46:01 12/02/1912/01/2018 UA, urina lysis refle x cultu re pH, urine 5.0 5.0-8. 0 normal Not Available [facility] ? Lab [address] [facility] [address], [place], [address] 12/01/2018 17:46:01 12/02/1912/01/2018 UA, urina lysis refle x cultu re specific gravity,urin e 1.019 1.003- 1.030 normal Not Available [place] [facility] ? Lab [address] [facility] [address], [place], [address] 12/01/2018 17:46:01 12/02/1912/01/2018 UA, urina lysis refle x cultu re blood,urine Negati ve mg/dL negati ve Not Available [facility] ? Lab [address] [facility] [address], [place], [address] 12/01/2018 17:46:01 12/02/1912/01/2018 UA, urina lysis refle x cultu re protein,urin e Negati ve mg/dL negati ve Not Available [facility] ? Lab [address] [facility] [address], [place], [address] 12/01/2018 17:46:01 12/02/1912/01/2018 UA, urina lysis refle x cultu re glucose,urin e (UA) Negati ve mg/dL negati ve Not Available [facility] ? Lab [address] [facility] [address], [place], [address] 12/01/2018 17:46:01 12/02/1912/01/2018 UA, urina lysis refle x cultu re ketones,urin e Negati ve mg/dL negati ve Not Available [facility] ? Lab [address] [facility] [address], [place], [address] 12/01/2018 17:46:01 12/02/1912/01/2018 UA, urina lysis refle x cultu re nitrate,urin e Negati ve negati ve Not Available [facility] ? Lab [address] [facility] [address], [place], [address] 12/01/2018 17:46:01 12/02/1912/01/2018 UA, urina lysis refle x cultu re bilirubin,ur ine Negati ve mg/dL negati ve Not Available [facility] ? Lab [address] [facility] [address], [place], [address] 12/01/2018 17:46:01 12/02/1912/01/2018 UA, urina lysis refle x cultu re urobilinogen ,urine Normal mg/dL normal Not Available [facility] ? Lab [address] [facility] [address], [place], [address] 12/01/2018 17:46:01 12/02/1912/01/2018 UA, urina lysis refle x cultu re leukocyte esterase,uri ne Negati ve negati ve Not Available [facility] ? Lab [address], [place], [address] 12/01/2018 17:46:01 04/12/20 19 04/13/2019 urina lysis compl ete, refle x cultu re color YELLOW yellow normal Not Available [facility] [place] [facility] [address], [place], [address], 04/13/2019 13:57:53 04/12/2004/13/2019 urina lysis compl ete, refle x cultu re appearance CLEAR clear normal Not Available [facility] [place] [facility] [address], [place], [address], 04/13/2019 13:57:53 04/12/2004/13/2019 urina lysis compl ete, refle x cultu re specific gravity 1.015 1.001- 1.035 normal Not Available [facility] [place] [facility] [address], [place], [address], 04/13/2019 13:57:53 04/12/2004/13/2019 urina lysis compl ete, refle x cultu re pH 5.5 5.0-8. 0 normal Not Available [facility] [place] [facility] [address], [place], [address], 04/13/2019 13:57:53 04/12/2004/13/2019 urina lysis compl ete, refle x cultu re glucose NEGATI VE negati ve normal Not Available [facility] [place] [facility] [address], [place], [address], 04/13/2019 13:57:53 04/12/2004/13/2019 urina lysis compl ete, refle x cultu re bilirubin NEGATI VE negati ve normal Not Available [facility] [place] [facility] [address], [place], [address], 04/13/2019 13:57:53 04/12/20 19 04/13/2019 urina lysis compl ete, refle x cultu re ketones NEGATI VE negati ve normal Not Available [facility] [place] [facility] [address], [place], [address], 04/13/2019 13:57:53 04/12/2004/13/2019 urina lysis compl ete, refle x cultu re occult blood NEGATI VE negati ve normal Not Available [facility] [place] [facility] [address], [place], [address], 04/13/2019 13:57:53 04/12/2004/13/2019 urina lysis compl ete, refle x cultu re protein NEGATI VE negati ve normal Not Available [facility] [place] [facility] [address], [address], 04/13/2019 13:57:53 04/12/2004/13/2019 urina lysis compl ete, refle x cultu re nitrite NEGATI VE negati ve normal Not Available [facility] [place] [facility] [address], [place], [address], 04/13/2019 13:57:53 04/12/2004/13/2019 urina lysis compl ete, refle x cultu re leukocyte esterase NEGATI VE negati ve normal Not Available [facility] [place] [facility] [address], [place], [address], 04/13/2019 13:57:53 04/12/2004/13/2019 urina lysis compl ete, refle x cultu re WBC NONE SEEN /hpf 0-5 normal Not Available [facility] [place] [facility] [address], [address], 04/13/2019 13:57:53 04/12/2004/13/2019 urina lysis compl ete, refle x cultu re RBC NONE SEEN /hpf 0-2 normal Not Available [facility] [place] [facility] [address], [address], 04/13/2019 13:57:53 04/12/20 19 04/13/2019 urina lysis compl ete, refle x cultu re squamous epithelial cells NONE SEEN /hpf < or = [address] [facility] [place] [facility] [address], [address], 04/13/2019 13:57:53 04/12/2004/13/2019 urina lysis compl ete, refle x cultu re bacteria NONE SEEN /hpf none seen normal Not Available [facility] [place] [facility] [address], [address], 04/13/2019 13:57:53 04/12/20 19 04/13/2019 urina lysis compl ete, refle x cultu re hyaline cast NONE SEEN /lpf none seen normal Not Available [facility] [place] [facility] [address] [place] [address], [address], 04/13/2019 13:57:53 04/12/20 19 04/13/2019 cultu re, urine reflexive urine culture NO CULTUR E INDICA MARIA DEL CARMEN Not Available [facility] [address] [place] [address], [address], 04/13/2019 13:57:53 Result Notes None recorded. Problems Name Problem SNOMED Code Status Onset Date Resolution Date Notes Provider Name and Address Organization Details Recorded Time Cyst of ovary 53097356 Active 019 POLINA GUEVARA II, MD [address] [place] [address], [phone] , [facility] 10/14/2018 10:25:05 Problem Notes None recorded. Procedures Surgical History Date Name Laterality Status Provider Name and Address Organization Details Recorded Time 11/17/19 19 Laparoscopy surg colpopexy completed Luz Torres, MD [address] [place], [address], [facility] 12/01/2018 15:20:17 09/15/19 19 Hysteroscopy (Office) completed IRWIN TREJO MD [address] [place] [address], [phone], [facility] 09/14/2018 16:25:07 06/02/19 15 cholecystectomy completed Dolly Cramer [facility] 08/14/2018 11:12:15 06/02/19 13 thyroidectomy completed Dolly Travistega [facility] 08/14/2018 11:11:29 Appendectomy completed IRENE BARRETO NP [address] [place] [address], [phone], [facility] 10/14/2018 10:28:36 procedure on nasal septum completed IRENE BARRETO NP [address] [place] [address], [phone], [facility] 10/14/2018 10:29:06 Imaging Results None recorded. Procedure Notes None recorded. Medical Equipment None Reported. Allergies Allergen ID Allergen Name Allergen Category Reaction Reaction Severity Criticality Documentation Date Start Date Code Code System Note Provider Name and Address Organization Details Recorded Time 797439 codeine medicatio n Not available Not available Not available 08/14/2018 2670 RxNorm Dolly Cramer [facility] 9 11:13:21 Medications Name Sig Start Date Stop Date Status Note LastModified by Organization Details LastModified Time [place] Thyroid 90 mg tablet Take 1 tablet every day by oral route. active Holland thyroid 15mg in the afternoon Not Available Not Available Not Available atorvastati n 10 mg active Not Available Not Available Not Available Zantac active Not Available Not Availa ble Not Available Zyrtec 10 mg capsule Take by oral route. active Not Available Not Available No t Available Flonase Allergy Relief active Not Available Not Available Not Available Vitals Date Recorded Body height Body mass index (BMI) Body weight Heart rate Body temperature Systolic blood pressure Diastolic blood pressure Provider Name and Address Organization Details Last Updated DateTime 9 160.02 cm 20.9 kg/m2 09033.9 g 84 /min 98 [degF] 117 mm[Hg] 66 mm[Hg] Carleen Soriano [facility] 9 11:34:43 Date Recorded Body height Body mass index (BMI) Body weight Heart rate Systolic blood pressure Diastolic blood pressure Provider Name and Address Organization Details Last Updated DateTime 9 160.02 cm 21.9 kg/m2 82572.3 g 83 /min 154 mm[Hg] 77 mm[Hg] Jenni Pacheco [facility] 9 13:51:32 Date Recorded Body weight Heart rate Systolic blood pressure Diastolic blood pressure Provider Name and Address Organization Details Last Updated DateTime 09/25/2020 52565.82 g 85 /min 137 mm[Hg] 70 mm[Hg] Alissa Anish [facility] 09/25/2020 08:43:47 Social History Question Answer Notes LastModified by Organization Details LastModified Time Tobacco Smoking Status Current Every Day Smoker quit for 7 weeks Jenni Pacheco [facility] 04/12/2019 13:52:15 What Is Your Level Of Alcohol Consumption? Occasional Information not available 10/14/2018 Is Blood Transfusion Acceptable In An Emergency? Yes [email or web address] Information not available 08/14/2018 What Is Your Level Of Caffeine Consumption? 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 With Others Daughter [email or web address] Information not available 08/14/2018 Are You Being Threatened/ Abused By Someone? No [email or web address] Information not available 08/14/2018 Self Breast Exam Yes Information not available 08/14/2018 Marital Status [email or web address] Informatio n not available 08/14/2018 What Was The Date Of Your Most Recent Tobacco Screening? 12/01/2018 Information not available 12/23/2018 How Many Children Do You Have? 2 Information not available 10/14/2018 Seat Belts Used Routinely Yes [email or web address] Information not available 08/14/2018 Are You Sexually Active? No Information not available 10/14/2018 Smoke Alarm In Home Yes [email or web address] Information not available 08/14/2018 How Much Tobacco Do You Smoke? 1 PPD 15 Cigarettes Per Day Information not available 10/14/2018 Sex: Unknown Functional Status Question Answer Note LastModified by Organization D etails LastModified Time What is your exercise level? None [email or web address] Information not available 08/14/2018 Mental Status None recorded. Family History Relationship Description Onset Age of this Age Resolved Age Notes Father Family history of stroke Father Hypertensive disorder Father Alcoholism Sister Hypertensive disorder Mother Hypercholesterolemia Daughter Alcoholism Unspecified Relation Malignant tumor of breast Unspecified Relation Malignant tumor of colon Medical History Condition Response hypothyroidism lung disorder Y kidney disease N cancer Y other urinary tract infection N heart condition N anxiety disorder Y bowel problems hypercholesterolemia Y glaucoma N Gynecological History Statement/Question Response Abnormal Pap N Date of LMP 06/02/1999 Date and result of last mammogram 2017 Duration of Flow (days) 5 Current Control Method None Date and result of Last Bone Density 2017 Date and result of last colonoscopy 2014 If Post Menopausal, Age at Menopause 38 Date of Last Pap 08/14/2018 Sexually Active? N Menses Monthly N Date of Last Pap Smear Obstetrics History GPAL:G 2 P 0 0 0 2 Type Value Living 2 Total 2 Immunizations Vaccine Type Date Status Provider Name and Address Organization Details Recorded Time Influenza, split virus, quadrivalent, preservative 03/02/2019 completed Jenni bran [facility] 04/12/2019 13:51:13 Past Encounters Encounter ID Performer Location Encounter Start Date Encounter Closed Date Diagnosis/Indication Diagnosis SNOMED-CT Code Diagnosis ICD10 Code [id number] [facility] SUBMARINE ELEMENT COORDINATOR- OFFICE [address] [place], [place] [address] [address] 08/14/2018 10:34:28 08/14/2018 11:35:05 Postmenopausal bleeding 34101552 N95.0 Gynecologi c examination 81923558 Z01.419 Urinary incontinence 165 462786 R32 Cystocele 841940999 N81. 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 [facility] [address] [place] [address] 10/14/2018 10:10:23 10/14/2018 12:44:01 Cyst of ovary 47459514 N83.209 [id number] Luz Torres MD [facility] TELEGRAPH SERVICE CLERK. 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 [facility] [address] [place] [address] 12/01/2018 10:35:22 12/01/2018 14:16:20 Uterovaginal prolapse 24933489 N81.4 Atrophic vaginitis 53525 000 N95.2 Tobacco de pendence syndrome 73422877 F17.200 Incomplete emptying of urinary bladder 409041298 R39.14 [id number] POLINA GUEVARA II, MD [facility] TELEGRAPH SERVICE CLERK. [facility] [address] [place] [address] 12/01/2018 10:36:08 12/01/2018 12:04:59 Cyst of ovary 48060438 N83.209 [id number] Luz Torres MD [facility] SUBMARINE ELEMENT COORDINATOR- OFFICE [address] [address] 04/12/2019 13:45:42 04/12/2019 14:25:36 Uterovaginal prolapse 31151772 N81.4 Atrophic vaginitis 61694 000 N95.2 Tobacco de pendence syndrome 19617436 F17.200 Incomplete emptying of urinary bladder 695708190 R39.14 [id number] IRWIN TREJO MD [facility] SUBMARINE ELEMENT COORDINATOR- OFFICE [address] [address] 09/25/2020 08:27:58 09/25/2020 08:57:02 Gynecologic examination 81650724 Z01.419 [id number] ZACHARY VARGAS MD [facility]GERY [address] [place] [address] 07/18/2021 09:48:09 07/18/2021 10:24:14 Omphalitis 841748514 L08.82 Health Concerns Section Related Observation LastModified by Organization Detai ls LastModified Time None Recorded Concern Status LastModified by Organization Details LastModified Time None Recorded Advance Directives Directive None Recorded Payers Encounter Date Sequence Insurance Name Policy Number Policy Cardona Covered Member ID Cardona Member ID Guarantor Name 12/01/2018 1 [place] [id number] Priya Teran Bo [id number] Priya Teran Bo 12/01/2018 1 [place] [id number] Pirya Teran Bo [id number] Priya Teran Bo 04/12/2019 1 [place] [id number] Priya Teran Bo [id number] Priya Teran Bo 09/25/2020 1 [place] [facility] [id number] Priya Soriano [id number] Priya Soriano 07/18/2021 1 [facility]: [facility] [id number] Priya Soriano [id number] Priya Soriano Notes Date Note Type Note Provider Name and Address Organization Details Recorded Time 12/01/2018 text/html HPI Notes: doing well quit smoking! some twinges of pain occasisionally Luz Torres MD [address] [place] [address], [phone], [facility] 12/01/2018 15:20:36 12/01/2018 text/html HPI Notes: 58-year-old G2, P2 seen for postop check following total laparoscopic hysterectomy and bilateral salpingo-oophorectom y for management of a large right adnexal cystic mass. 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 The uterus and left adnexa were benign as well. She also underwent concurrent sacrocolpopexy with Dr. Luz Torres. She was initially referred by Dr. Irwin Trejo for evaluation and management of a large ovarian cyst. She had undergone COMPLIANCE PROFESSIONAL screening exam and was noted to have a large cystocele and complaints of urinary urgency and incontinence. Pelvic ultrasound evaluation was performed and notable for a 17 cm probable right ovarian cyst. CA-125 was normal range. Screening Pap smear was normal. POLINA GUEVARA II, MD [address] [place] [address], [phone], [facility] 12/01/2018 11:51:07 04/12/2019 text/html HPI Notes: doing well quit smoking- and restarted again. Trying again to quit. leaks if she drinks coke slight leaking with coughing. Lzu Torres MD [address] [place] [address], [phone], [facility] 04/12/2019 14:43:17 09/25/2020 text/html HPI Notes: 60-year-old female here for annual exam. She has no complaints. Her incontinence is much improved. She had it laparoscopic hysterectomy, BSO, sacrocolpopexy performed on 11/16/18. No history of severely abnormal Pap smears in the past, no history of cervical excisional procedure, pathology of hysterectomy benign. Patient had the following procedure performed on 11/16/18 :s/p total laparoscopic hysterectomy and bilateral salpingo-oophorectom y for management of a large right adnexal cystic mass with Laparoscopic Sacrocolpopexy performed by Urgogyn . 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 The uterus and left adnexa were benign as well. She also underwent concurrent sacrocolpopexy with Dr. Luz Torres. She had undergone COMPLIANCE PROFESSIONAL screening exam and was noted to have a large cystocele and complaints of urinary urgency and incontinence. Pelvic ultrasound evaluation was performed and notable for a 17 cm probable right ovarian cyst. CA-125 was normal range. Screening Pap smear was normal. She had hysteroscopy for recurrent postmenopausal bleeding prior to her hysterectomy. History of mildly abnormal Pap smear twice in her life which corrected themselves. No history of any gynecological surgeries in the past. She has history of thyroid cancer for which she had thyroid removal 6 years ago and [facility]. Her other surgeries include surgery for deviated nasal septum and gallbladder surgery. Patient smokes about three fourths of a pack per day for the past 30 years. x2 in [place]. Pap smear done on 08/14/18 is normal cytology with negative HPV testing. IRWIN TREJO MD [address] [place] [address], [phone], [facility] 09/29/2020 14:40:22 07/18/2021 text/html HPI Notes: Sandra carndall is referred to me for omphalitis. She reports that she had some drainage around her belly button about 6 weeks ago which is now completely resolved. It is not hurting or bothering her. She has myriad other complaints it is not related to her recent issues with omphalitis. ZACHARY VARGAS MD [address] [place] [address], [phone], [facility] 07/18/2021 10:58:05 OBGyn Episode Ob Episode Information Episode Created Date Number of Fetuses Patient Bloodtype Patient rh Status Prepregnancy Weight lbs Domestic Partner Domestic Partner Phone Father Name Rabble Furnace Tender Status 08/15/19 19 1 CLOSED Fetus Data First Name Last Name Admitted to NICU Weight (g) Sex Living Outcome Pediatric Complications Fetus ID Race Codes Race Delivery Type 3798.83 3 F Full Term [id number] Milton Calculation Initial Milton Date Initial Exam Date Initial Exam Provider Initial Ultrasound Date Last Menstrual Period Date Ultra Sound Weeks Gestation 0 Eighteen To Twenty Week Milton Update Ultra Sound Date Fundal Height At Umbil Quickening Date Ultra Sound Latest Weeks Gestation Final Milton Confirmed By Final Milton Confirmed Date Final Milton Date Ultra Sound Latest Days Gestation 0 0 Menstrual History Last Menstrual Date Menses Monthly On Bcp Conception Prior Menses Frequency Hcg Plus Date Menarche Onset Age Delivery Information Delivery Date Delivery Type Labor Anesthesia Weeks Gestation Incision Type Labor Labor Length Hrs Delivered By Post Complications Tubal Sterilization Discharge Date Comments 1 40 2 [place] Discharge Information Feeding Method Contraceptive Method Maternal HG B and HCT Levels Ob Episode Information Episode Created Date Number of Fetuses Patient Bloodtype Patient rh Status Prepregnancy Weight lbs Domestic Partner Domestic Partner Phone Father Name Rabble Furnace Tender Status 08/15/19 19 1 CLOSED Fetus Data First Name Last Name Admitted to NICU Weight (g) Sex Living Outcome Pediatric Complications Fetus ID Race Codes Race Delivery Type 3685.43 5 F Full Term [id number] Milton Calculation Initial Milton Date Initial Exam Date Initial Exam Provider Initial Ultrasound Date Last Menstrual Period Date Ultra Sound Weeks Gestation 0 Eighteen To Twenty Week Milton Update Ultra Sound Date Fundal Height At Umbil Quickening Date Ultra Sound Latest Weeks Gestation Final Milton Confirmed By Final Milton Confirmed Date Final Milton Date Ultra Sound Latest Days Gestation 0 0 Menstrual History Last Menstrual Date Menses Monthly On Bcp Conception Prior Menses Frequency Hcg Plus Date Menarche Onset Age Delivery Information Delivery Date Delivery Type Labor Anesthesia Weeks Gestation Incision Type Labor Labor Length Hrs Delivered By Post Complications Tubal Sterilization Discharge Date Comments 0 40 4 [place] Discharge Information Feeding Method Contraceptive Method Maternal HG B and HCT Levels
[2024-02-10 16:13] LABS: Influenza A PCR Negative (Negative); Influenza B PCR Negative (Negative); RSV PCR Negative (Negative)
[2024-02-10 16:15] LABS: Source Nasopharynx
[2024-02-10 16:16] LABS: COVID-19 PCR Positive (Negative)
[2024-02-10 16:32] LABS: Abs Immature Grans 0.01 10^3/uL (0.0-0.06); Absolute Lymphocyte Count 1.05 10^3/uL (1.2-3.4); Absolute Monocyte Count 0.23 10^3/uL (0.1-0.8); Absolute Neutrophil Count 2.84 10^3/uL (1.2-6.7); HCT 39.6 % (36.0-46.0); HGB 13.8 g/dL (11.2-15.7); Immature Grans % 0.2 %; Lymphocytes % 25.4 %; MCH 30.3 pg (27.0-33.0); MCHC 34.8 % (32.0-36.0); MCV 87 fL (80-95); MPV 8.8 fL (8.0-11.0); Monocytes % 5.6 %; Neutrophils % 68.8 %; Platelet Count 211 10^3/uL (130-400); RBC 4.56 10^6/uL (3.93-5.22); RDW 11.7 % (11.7-14.6); RDW-SD 37.1 fL; WBC 4.13 10^3/uL (4.4-10.8)
[2024-02-10] MEDS: ACETAMINOPHEN 1,000 MG/100 ML BTL 400 MG IVPB (16:43)
[2024-02-10] MEDS: Normal Saline 1,000 ML 1000 ML IV (16:43)
[2024-02-10 16:51] LABS: Lipase 25 U/L (16-77)
[2024-02-10 16:55] LABS: ALT 260 U/L (14-59); AST 163 U/L (15-37); Albumin 4.1 g/dL (3.4-5.0); Alkaline Phosphatase 179 U/L (46-116); Anion Gap 8.3 mmol/L (3-11); BUN 15 mg/dL (7-18); Bilirubin, Total 0.41 mg/dL (0.2-1.0); CO2 29.7 mmol/L (21.0-32.0); CREATININE 0.7 mg/dL (0.55-1.02); Chloride 104 mmol/L (98-107); Estimated GFR 96.52 (mL/min/1.73m2); Glucose 108 mg/dL (74-106); Magnesium 2.2 mg/dL (1.8-2.4); Potassium 4.3 mmol/L (3.5-5.1); Sodium 142 mmol/L (136-145); Total Protein 7.5 g/dL (6.4-8.2)
[2024-02-10 17:00] LABS: Calcium 9.6 mg/dL (8.5-10.1)
[2024-02-10 17:06] LABS: TSH (W/Ref FT4) 0.02 uIU/mL (0.36-3.74); Troponin I 8 ng/L (4-51)
[2024-02-10 17:29] LABS: FREE T4 0.92 ng/dL (0.76-1.46)
[2024-02-10 18:09] LABS: Bilirubin Negative (Negative); Blood Negative (Negative); Clarity Sl Cloudy (Clear); Glucose Negative (Negative); Ketones 80 mg/dL (Negative); Leukocyte Esterase Small (Negative); Nitrite Negative (Negative); Specific Gravity 1.015 (1.005-1.025); Urobilinogen 0.2 mg/dL (Up to 0.2)
[2024-02-10 18:14] LABS: Bacteria Few HPF (Negative); C & S Indicated? No; Casts Negative LPF (Negative); Crystals Negative HPF (Negative); Epithelial Cells Few HPF (Negative); Mucus Trace (Negative); RBC 0-2 HPF (0-2)
[2024-02-10] MEDS: Omnipaque 350 MG/ML 100 ML BTL IJ (18:17)
[2024-02-10] MEDS: Normal Saline - Diluent 50 ML VIAL IJ (18:18)
--- NOTE | 2024-02-10 18:20 | ED.GENADUL_ITS ---
Discharge Plan Disposition Patient Disposition: Home Condition: Stable Discharge Details Clinical Impression: COVID-19, Chest pain, Elevated transaminase level, Low TSH level Primary Care Provider: Unknown,Unknown ED Provider: Frances Kirk Home Meds and New Rx's Prescriptions: Continued levothyroxine 137 mcg Tablet 137 mcg PO DAILY ascorbic acid (vitamin C) [Vitamin C] 1,000 mg Tablet 1 g PO DAILY atorvastatin 10 mg Tablet 10 mg PO QHS vitamin E 600 unit Capsule 600 unit PO DAILY amlodipine 2.5 mg Tablet 2.5 mg PO DAILY potassium chloride 10 mEq Tablet Extended Release 10 meq PO DAILY simethicone 60 mg Tablet 120 mg PO DAILY calcium phos,dibas-vitamin D3 77-400 mg-unit Tablet 1 tab PO DAILY Centrum 18-400 mg-mcg Tablet 1 tab PO DAILY vitamin O42-sjsfo acid 1,000-400 mcg Tablet, Sublingual 1 tab sublingual DAILY Discharge Instructions Instructions: COVID-19 ED Additional Instructions: Please follow up with primary care physician for repeat liver function tests in 2 weeks Continue with supportive care Make sure to have at least eight 8 ounce glasses water daily Take your Ativan as needed for anxiety please follow-up with endocrinology, I am placing referral to [facility] endocrinology Please make sure to follow-up with a primary care physician HPI General Date/Time Provider Initiated Documentation: 02/10/24 15:01 . HPI Narrative: 63-year-old female with history of hypothyroidism, hypokalemia presents with report of COVID-19 diagnosis on Friday of this week. She has been symptomatic with upper respiratory symptoms low-grade fever and shortness of breath. Today she is under a great deal of stress and feels as though she had a panic attack secondary to a living situation where she cares for her dmofdx-nn-fhr. She was given 0.5 of Ativan by her sister has felt marked improvement since that time. Sister and patient were concerned regarding longevity of symptoms. Denies any current chest pain, calf pain or swelling, history of coagulopathy, recent flights, surgeries, long drives. Denies history of coronary artery disease or hypertension. Denies history of hyperlipidemia. Smokes intermittently per patient. Denies any exogenous hormones. Related Data Home Medications ?Medication ?Instructions ?Recorded ?Confirmed amlodipine 2.5 mg tablet 2.5 mg PO DAILY 12/02/20 02/10/24 ascorbic acid (vitamin C) 1,000 mg 1 g PO DAILY 12/02/20 02/10/24 tablet (Vitamin C) atorvastatin 10 mg tablet 10 mg PO QHS 12/02/20 02/10/24 calcium phosphate,dibasic 77 1 tab PO DAILY 12/02/20 02/10/24 mg-vitamin D3 400 unit tablet levothyroxine 137 mcg tablet 137 mcg PO DAILY 12/02/20 02/10/24 multivitamin-ferrous 1 tab PO DAILY 12/02/20 02/10/24 fumarate-folic acid 18 mg-400 mcg tablet (Centrum) potassium chloride 10 mEq 10 meq PO DAILY 12/02/20 02/10/24 tablet,extended release simethicone 60 mg tablet 120 mg PO DAILY 12/02/20 02/10/24 vitamin B12 1,000 mcg-folic acid 1 tab sublingual DAILY 12/02/20 02/10/24 400 mcg sublingual tablet vitamin E 600 unit capsule 600 unit PO DAILY 12/02/20 02/10/24 Allergies Allergy/AdvReac Type Severity Reaction Status Date / Time codeine AdvReac Unknown Unverified 02/10/24 15:10 General Stated Complaint: Chest Pain TAYLOR: 2 Exam Narrative Exam Narrative: Alert and oriented 63-year-old female resting comfortably in no acute distress, lungs clear to auscultation, no respiratory distress, cardiac rate rhythm regular, no peripheral edema, no calf sling or tenderness, distal pulses intact, no abdominal tenderness, no rebound or guarding, no CVA tenderness Course Vital Signs Vital signs: Vital Signs Temperature 35.8 C L 02/10/24 15:03 Pulse 91 H 02/10/24 15:03 Respiratory Rate 16 02/10/24 15:03 Blood Pressure 132/73 02/10/24 15:03 Pulse Oximetry 98 02/10/24 15:03 Temperature 35.8 C L 02/10/24 15:03 Temperature Source Skin 02/10/24 15:03 Pulse 61 02/10/24 17:01 Pulse 63 02/10/24 17:01 Respiratory Rate 15 02/10/24 17:01 Blood Pressure 151/57 H 02/10/24 17:01 Blood Pressure Mean 86 02/10/24 17:01 Pulse Oximetry 99 02/10/24 17:01 Pain Level 4 02/10/24 15:03 Lab/Test Results Lab/Test Results: 02/10/24 18:00 Vaginal Vaginitis Screen - Pending Laboratory Tests Range/Units 02/10/24 02/10/24 02/10/24 15:24 16:22 18:00 WBC (4.4-10.8) 10^3/uL 4.13 L RBC (3.93-5.22) 10^6/uL 4.56 Hgb (11.2-15.7) g/dL 13.8 Hct (36.0-46.0) % 39.6 MCV (80-95) fL 87 MCH (27.0-33.0) pg 30.3 MCHC (32.0-36.0) % 34.8 RDW (11.7-14.6) % 11.7 Plt Count (130-400) 10^3/uL 211 MPV (8.0-11.0) fL 8.8 Immature Gran % % 0.2 Neutrophils % % 68.8 Lymphocytes % % 25.4 Monocytes % % 5.6 Eosinophils % % 0.0 Basophils % % 0.0 Nucleated RBC % (0.0-0.3) % 0.0 Absolute Neutrophils (1.2-6.7) 10^3/uL 2.84 Absolute Lymphocytes (1.2-3.4) 10^3/uL 1.05 L Absolute Monocytes (0.1-0.8) 10^3/uL 0.23 Absolute Eosinophils (0.0-0.7) 10^3/uL 0.00 Absolute Basophils (0.0-0.2) 10^3/uL 0.00 Sodium (136-145) mmol/L 142 Potassium (3.5-5.1) mmol/L 4.3 Chloride (98-107) mmol/L 104 Carbon Dioxide (21.0-32.0) mmol/L 29.7 Anion Gap (3-11) mmol/L 8.3 BUN (7-18) mg/dL 15 Creatinine (0.55-1.02) mg/dL 0.7 Est GFR (CKD-EPI 2020) (mL/min/1.73m2) 96.52 Glucose (74-106) mg/dL 108 H Calcium (8.5-10.1) mg/dL 9.6 Magnesium (1.8-2.4) mg/dL 2.2 Total Bilirubin (0.2-1.0) mg/dL 0.41 AST (15-37) U/L 163 H ALT (14-59) U/L 260 H Alkaline Phosphatase (46-116) U/L 179 H Troponin I High Sens (4-51) ng/L 8 Total Protein (6.4-8.2) g/dL 7.5 Albumin (3.4-5.0) g/dL 4.1 Lipase (16-77) U/L 25 TSH (0.36-3.74) uIU/mL 0.02 L Free T4 (0.76-1.46) ng/dL 0.92 Urine Color (Yellow) Yellow Urine Clarity (Clear) Sl Cloudy Urine pH (5-8) 6.0 Ur Specific [place] (1.005-1.025) 1.015 Urine Protein (Neg-Trace) mg/dL Negative Urine Ketones (Negative) mg/dL 80 H Urine Blood (Negative) Negative Urine Nitrite (Negative) Negative Urine Bilirubin (Negative) Negative Urine Urobilinogen (Up to 0.2) mg/dL 0.2 Ur Leukocyte Esterase (Negative) Small H Urine RBC (0-2) HPF 0-2 Urine WBC (0-5) HPF 5-10 Ur Epithelial Cells (Negative) HPF Few Urine Crystals (Negative) HPF Negative Urine Bacteria (Negative) HPF Few Urine Casts (Negative) LPF Negative Urine Mucus (Negative) Trace Ur Culture Indicated? No Urine Glucose (Negative) mg/dL Negative COVID-19 Source Nasopharynx SARS-CoV-2 (PCR) (Negative) Positive A Influenza Type A (PCR) (Negative) Negative Influenza Type B (PCR) (Negative) Negative RSV (PCR) (Negative) Negative Medical Decision Making 63-year-old female presenting in no acute distress, chest x-ray without acute abnormality per radiology interpretation and my review, CT abdomen and pelvis does not show evidence of acute abnormality, common bile duct is dilated consistent with prior cholecystectomy, no current abdominal pain but patient has some intermittent epigastric pain. LFTs are elevated likely consistent with COVID-19 diagnosis. She is encouraged to have this rechecked with primary care physician and return to the emergency department should she have return of abdo babar pain at this time she is currently asymptomatic in this regard. She will need repeat LFTs in 2 weeks. Patient denies any current chest pain or shortness of breath. Do not have significant concern for coronary artery component to patient's complaints, low suspicion for DVT clinically. Encouraged to establish care with primary care physician, she has paperwork placed for assessment. Given patient's hyperthyroid state in the presence of thyroidectomy previously, she is encouraged to follow-up with endocrinology, placed referral for [facility] for reassessment. Given the threshold to return should she have new or worsening complaints, not a candidate for Paxlovid given that she is on day 8 of symptoms. Quality:SDOH Health Related Social Needs: No Data to Display PFSH All Active Problems (Updated 02/10/24 @ 19:05 by MARLO Rico) Low TSH level (Acute) Elevated transaminase level (Acute) Chest pain (Acute) COVID-19 (Acute) Anxiety (Chronic) Chest discomfort (Acute) Lightheadedness (Acute) Orthostatic hypotension (Acute) Social History Smoking/Tobacco Use Status: Current every day Tobacco Type: cigarettes Smoking risk assessment performed?: Yes Alcohol Intake: never Drug use: Never Substance use type: does not use Do you feel safe at home: Yes Do you feel safe in your relationship?: Yes
--- NOTE | 2024-02-10 18:34 | DI.CT_ITS ---
Exam(s) CT ABDOMEN PELVIS W EXAM: CT ABDOMEN PELVIS W CLINICAL HISTORY: RUQ pain, elevated lfts TECHNIQUE: Imaging Protocol: Axial computed tomography images with coronal and sagittal reformatted images were created and reviewed. CONTRAST MATERIAL: Intravenous: Omnipaque 350 Contrast volume:100 mL Oral: No COMPARISON: There are no priors for comparison. FINDINGS: ABDOMEN: Lung Bases: Normal where visualized. Liver: Normal density. No measurable mass. Portal, Superior Mesenteric, and Splenic Veins: Unremarkable. Gallbladder and Biliary Tract: Status post cholecystectomy. The common duct measures 1.2 cm. No cho ledocholithiasis is seen. No pancreatic mass is appreciated. Pancreas: Normal density, no abnormal calcifications or inflammatory process. Spleen: Normal. Adrenals: No masses seen. Kidneys: Normal size, contour and axis. No radiodense stones or obstructive uropathy. There is a simp le cyst in the lower pole of the right kidney. No follow-up is recommended. Abdominal Aorta: Abdominal portion non-dilated. Atherosclerotic calcification is present. Bowel: No obstruction or bowel wall thickening. There is no evidence of appendicitis. There is a mod erate amount of stool throughout the colon. The stomach is incompletely distended limiting evaluatio n. Peritoneal Cavity: No ascites, collection or mesenteric inflammatory response. No free air. Lymph Nodes: Within normal limits. Bones: Within normal limits for the patient's age. Soft Tissues: Unremarkable. PELVIS: Bladder: Symmetric distention, no gross wall thickening. Reproductive Organs: The uterus is not visualized. Lymph Nodes: Within normal limits. Bones: Within normal limits for the patient's age. IMPRESSION: 1. Status post cholecystectomy. The common duct measures 1.2 cm. No evidence of choledocholithiasis or pancreatic mass is seen on this examination. The dilatation may be secondary to the post cholecy stectomy state. If there is continued concern, an MRCP/MRI of the abdomen is recommended. 2. Moderate amount of stool in the colon suggesting constipation. RADIATION DOSE DELIVERED: 189.88mGy.cm Total DLP DATA REPOSITORY: All CT scans at this facility are submitted to the National Radiology Data Registry (NRDR) Dose Index Registry (DIR) with the [employer] (ACR). RADIATION OPTIMIZATION: All CT scans at this facility use at least one of these dose optimization te chniques: automated exposure control; mA and/or kV adjustment per patient size (includes targeted exa ms where dose is matched to clinical indication); or iterative reconstruction.
--- NOTE | 2024-02-10 18:34 | DI.RAD_ITS ---
Exam(s) XR CHEST 2V PA LATERAL EXAM: XR CHEST 2V PA LATERAL CLINICAL HISTORY: shortness of breath TECHNIQUE: 2D digital imaging was performed of the chest. Two images were obtained. PA and lateral views were obtained. COMPARISON: CR,XR XR CHEST 2V PA LATERAL from 12/02/2020 FINDINGS: MEDIASTINUM: Normal. HEART: Normal. PULMONARY VASCULATURE: Normal. LUNGS: Clear. PLEURAL SPACE: No pleural effusion or pneumothorax. BONE:Within normal limits for the patient's age. OTHER FINDINGS:Normal. IMPRESSION: No acute pulmonary findings. DATA REPOSITORY: RADIATION DOSE DELIVERED:
== END 2024-02-10 19:51 | disposition home or self-care (01) ==
PROVIDERS: Emergency Medicine; Emergency Provider Physician Assistant
DX: U07.1 COVID-19 (principal); R74.01 Elevation of levels of liver transaminase levels; R94.6 Abnormal results of thyroid function studies; E03.9 Hypothyroidism, unspecified; Z90.49 Acquired absence of other specified parts of digestive tract; F17.210 Nicotine dependence, cigarettes, uncomplicated; Z79.899 Other long term (current) drug therapy
CPT/HCPCS: 36415; 80053; 83690; 87637; 93005; 96365; 96366; 99285; 71046; 74177; 81003; 81015; 83735; 84439; 84443; 84484; 85025; 87480; 87510; 87660; 93010; 99284; J0131; J3490

== ENCOUNTER 2024-03-17 11:02 | Emergency (ER) | payer BC, SELFPAY ==
[2024-03-17] VITALS (7 sets, daily range): BP systolic 124–159; BP diastolic 53–77; PULSE 82–89; RESP 15–24; TEMP 36.7; O2SAT 98–99
--- NOTE | 2024-03-17 11:00 | RT.EKG_ITS ---
APPROVED REPORT Exam: Resting ECG Reason for Exam: chest pain Patient Location: E HR:94 bpm ECG Measurements Heart Rate 94 AXIS NM 145 P 74 QRSd 99 QRS 66 QT 366 T 40 QTc 458 Conclusion Sinus rhythm...normal P axis, V-rate 60- 99 Narrow complex normal sinus rhythm at a rate of 94. Intervals within normal limits. Normal axis. N o ST segment abnormalities. Mild ST segment depressions V3 through V6. Compared to prior dated isaiah ier this year ST segment depressions are persistent. No acute injury pattern.
--- NOTE | 2024-03-17 11:15 | DI.RAD_ITS ---
Exam(s) XR CHEST 2V PA LATERAL EXAM: XR CHEST 2V PA LATERAL CLINICAL HISTORY: chest pain TECHNIQUE: 2D digital imaging was performed of the chest. Two images were obtained. PA and lateral views were obtained. COMPARISON: CR XR CHEST 2V PA LATERAL from 02/10/2024 FINDINGS: MEDIASTINUM: Normal. HEART: Normal. PULMONARY VASCULATURE: Normal. LUNGS: Clear. PLEURAL SPACE: No pleural effusion or pneumothorax. BONE:Within normal limits for the patient's age. OTHER FINDINGS:Normal. IMPRESSION: No acute pulmonary findings. DATA REPOSITORY: RADIATION DOSE DELIVERED:
--- OUTSIDE RECORDS SUMMARY | 2024-03-17 11:15 | XMS_ITS | Clinical Summary ---
Author Organization [facility] Address [facility] [place] [address] Care Team Providers Care Pathology Secretary/Transcriptionist Name Role Phone Unavailable Primary Care Provider Unavailabl e Encounters Date Type Department Care Team Description 02/11/2024 Transcribe Orders eDH Incoming Referrals [phone] Frances Kirk PA Thyroid disease from Last 3 Months Social History Tobacco Use Types Packs/Day Years Used Date Smoking Tobacco: Never Assessed Sex and Gender Information Value Date Recorded Sex Assigned at Not on file Gender Identity Not on file Sexual Orientation Not on file Plan of Treatment Upcoming Encounters Date Type Department Care Team (Late st Contact Info) Description 04/14/2024 10:45 AM EST Office [place] [address] Juju Cloud [facility] [place] [address] Health Maintenance Due Date Last Done Comments CT Colonography 1959 Colonoscopy 1959 Colorectal Cancer Screening 1959 FIT DNA 1959 FIT 1959 Sigmoidoscopy (10 year) with FIT yearly 1959 Sigmoidoscopy 1959 HIV screen 1977 Hepatitis C Screening 1977 Tetanus/Diphtheria/Pertussis Vaccines (1 - Tdap) 04/20 HPV test 1989 PAP Smear 1989 Breast Cancer Share Decision Needed 1999 Breast Cancer screening 1999 Zoster vaccine (1 of 2) 2009 Advance Directive 2014 Covid-19 Vaccine ( - season) 2024 Influenza (Flu) vaccine (1 o f 1 - Influenza standard series) 02/01/2024
--- OUTSIDE RECORDS SUMMARY | 2024-03-17 11:15 | XMS_ITS | Encounter Summary ---
Author Organization [facility] Address [phone] [facility] [employer] [place] [address] Care Team Providers Care Pool Cleaner Name Role Phone Gulshan Aquino MD Primary Care Provider Encounter Details Date Type Department Care Team (Latest Contact Info) Description 03/09/2014 12:13 PM EDT - 03/09/2014 11:59 PM EDT Hospital Encounter [facility] [address] [place] [address] Mao Paul MD Discharge Disposition: Home or [...] on filedocumented in this encounter Care Teams Pool Cleaner Relationship Specialty Start Date End Date Gulshan Aquino MD [address] [address] PCP - General Allergy 02/16/14 documented as of this encounter Additional Source Comments The information contained in this document represents components of the legal health record. It is not the complete legal health record.[facility]
--- OUTSIDE RECORDS SUMMARY | 2024-03-17 11:15 | XMS_ITS | Clinical Summary ---
Author Organization [facility] Address [phone] [facility] [place] [address] Care Team Providers Care Drug Safety Physician Name Role Phone Gulshan Aquino MD Primary [...] Medical Devices Not on file Care Teams Drug Safety Physician Relationship Specialty Start Date End Date Gulshan Aquino MD [address] [address] PCP - General Allergy 02/16/14 Additional Source Comments The information contained in this document represents components of the legal health record. It is not the complete legal health record.[facility]
--- OUTSIDE RECORDS SUMMARY | 2024-03-17 11:15 | XMS_ITS | Encounter Summary ---
Author Organization [facility] [place] [address] Care Team Providers Care Editor School Photograph Name Role Phone Unavailable Primary Care Provider Unavailabl e Reason for Referral * Consultation (Routine) - Closed Specialty Diagnoses / Procedures Referred By Contac t Referred To Contact Endocrinology Diagnoses Hypothyroidism, unspecified type Gulshan Aquino MD [address] [place] [address] [facility] Endocrinology [address] [place] [address] Referral ID Status Reason Start Date Expiration Date V isits Requested Visits Authorized [id number] Closed Consult, Test & Treat PCP Updated and/or Approved 08/05/2022 02/03/2023 6 6 Encounter Details Date Type Department Care Team (Late Contact Info) Description 08/09/2022 Transcribe Orders eDH Incoming Referrals [phone] Gulshan Aquino MD [address] [place] [address] Hypothyroidism, unspecified type Social History Tobacco Use Types Packs/Day Years Used Date Smoking Tobacco: Never Assessed Sex and Gender Information Value Date Recorded Sex Assigned at Not on file Gender Identity Not on file Sexual Orientation Not on file documented as of this encounter Plan of Treatment Upcoming Encounters Date Type Department Care Team (Late Contact Info) Description 04/14/2024 10:45 AM EST Office [place] [address] Juju Cloud [facility] [address] Scheduled Referrals Name Type Priority Associated Diagnoses Order Schedule Referral to Endocrinology Outpatient Referral Routine Hypothyroidism, unspecified type Ordered: 08/09/2022 documented as of this encounter Visit Diagnoses Diagnosis Hypothyroidism, unspecified type documented in this encounter
--- OUTSIDE RECORDS SUMMARY | 2024-03-17 11:15 | XMS_ITS | Encounter Summary ---
[place] [address] Care Team Providers Care Hospitality Specialist Name Role Phone Unavailable Primary Care Provider Unavailabl e Reason for Referral * Consultation (Urgent) - Authorized Specialty Diagnoses / Procedures Referred By Contbryce t Referred To Contact Endocrinology Diagnoses Thyroid disease Frances Kirk PA [address] [place] [address] [place] [address] [facility] Endocrinology [address] [place] [phone] Referral ID Status Reason Start Date Expiration Date Visits Requested Visits Authorized [id number] Authorized Consult, Test & Treat PCP Updated and/or Approved 02/11/2024 08/10/2024 6 6 Encounter Details Date Type Department Care Team (Late Contact Info) Description 02/11/2024 Transcribe Orders eDH Incoming Referrals [phone] Frances Kirk PA [facility] [facility] [address] [place], [place] [phone] Thyroid disease Social History Tobacco Use Types Packs/Day Years Used Date Smoking Tobacco: Never Assessed Sex and Gender Information Value Date Recorded Sex Assigned at Not on file Gender Identity Not on file Sexual Orientation Not on file documented as of this encounter Plan of Treatment Upcoming Encounters Date Type Department Care Team (Late Contact Info) Description 04/14/2024 10:45 AM EST Office [place] [address] [facility] [address] [place] [address] Scheduled Referrals Name Type Priority Associated Diagnoses Order Schedule Referral to Endocrinology Outpatient Referral Urgent Thyroid disease Ordered: 02/11/2024 documented as of this encounter Visit Diagnoses Diagnosis Thyroid disease Unspecified disorder of thyroid documented in this encounter
--- OUTSIDE RECORDS SUMMARY | 2024-03-17 11:15 | XMS_ITS | Encounter Summary ---
Author Organization [facility] Address [facility] [place] [address] Care Team Providers Care Solid Tire Finisher Name Role Phone Unavailable Primary Care Provider Unavailabl e Encounter Details Date Type Department Care Team (Late st Contact Info) Description 08/19/2022 Telephone Endocrinology at [address] [address] Estela Galan Social History Tobacco Use Types Packs/Day Years Used Date Smoking Tobacco: Never Assessed Sex and Gender Information Value Date Recorded Sex Assigned at Not on file Gender Identity Not on file Sexual Orientation Not on file documented as of this encounter Miscellaneous Notes * Telephone Encounter - Estela Galan - 09/09/2022 10:44 AM EDT Left message that we have not received pertinent patient information after 2 faxed requests. The referral is closed at this time. * Telephone Encounter - Estela Galan - 08/27/2022 12:37 PM EDT Faxed over request for following information. Looks like she has seen Endo before at some point as she is on meds and had surgery. We need those records or who ever is prescribing the medication. We need labs too ? * Telephone Encounter - Sarah Cary - 08/19/2022 12:35 PM EDT Priya aware the office is waiting on additional records to support referral. Priya will reach outto referring provider to request records be sent * Telephone Encounter - Estela Galan - 08/19/2022 12:19 PM EDT Faxed over to referring provider requesting imaging, labs, medication information. Prior to scheduling new patient. Also reached out to patient requesting same thing. documented in this encounter Plan of Treatment Upcoming Encounters Date Type Department Care Team (Late st Contact Info) Description 04/14/2024 10:45 AM EST Office [place] [address] Juju Cloud [facility] [address] [place] [address] documented as of this encounter Visit Diagnoses Not on filedocumented in this encounter
--- OUTSIDE RECORDS SUMMARY | 2024-03-17 11:15 | XMS_ITS | Data Portability ---
Author Organization [place] - Jonathan harden MD, [facility] - Address [address] [place] [address] Care Team Providers Care Manufacturing Business Analyst Name Role Phone RODOLFO ARIAS Primary Care Provider RODOLFO ARIAS Referring Provider Assessment Encounter Date Assessment Date Assessment LastModified by Organization Details LastModified Time 08/19/2018 08/19/2018 Will schedule stress test and echo Coronary Ca++ score/CTA may also be an option pending above f/u 3 months [email or web address] Not available 08/19/2018 19:04:48 01/13/2019 01/13/2019 I would recommend the patient stay on her present medical therapy and I will make a follow-up appointment to see the patient in one year. [email or web address] Not available 01/31/2019 13:24:52 Plan of Treatment Reminders Order Date Submit Date Provider Last Modified By Organization Details Last Modified Time Details Appointments None record ed. Lab None record ed. Referral None record ed. Procedures None record ed. Surgeries None record ed. Imaging None record ed. Medication Orders None record ed. Patient TargetsNo targets recorded. Patient InstructionsNo instructions recorded. Reason for Referral None Reported. Results Created Date Observation Date Name Description Value Unit Range Abnormal Flag Note LastModifiedBy Organization Detail LastModifiedTime 09/12/1909/09/2018 exerc ise stres s test No observ ation record ed. [email or web address] [facility] (Medical Records) [address] [place], [address], 09/14/2018 09:32:33 10/15/19 19 US, echoc ardio gram, trans thora cic, compl ete, w/ color flow No observ ation record ed. [email or web address] Not Available 2018 11:55:03 Result Notes None recorded. Problems Name Problem SNOMED Code Status Onset Date Resolution Date Notes Provider Name and Address Organization Details Recorded Time Hypothyroid ism 30821180 Active 2018 Jonathan Avendano MD [address] [place] [address],[address], [place], [phone], MG Avendano MD 9 18:59:57 Hypercholes terolemia 05446128 Active 2018 Jonathan Avendano MD [address] [place] [address],[address], [place], [address], [place] MG Avendano MD 9 19:00:06 History of tobacco use 3146787882376 Active 2018 Jonathan Avendano MD [address] [place] [address],[address], [place], [address], MG Avendano MD 9 19:02:13 Problem Notes None recorded. Procedures Surgical History None recorded. Imaging Results Imaging Date Name Status LastModified by [facility]iz [facility] Details LastModified Time 09/09/2018 exercise stress test completed [email or web address] (Medical Records) [address] [place], [address], 09/14/2018 09:32:33 10/14/2018 US, echocardiogra m, transthoracic , complete, w/ color flow [place] [id number] Information not available 10/14/2018 11:55:03 Procedure Notes None recorded. Medical Equipment None Reported. Allergies Allergen ID Allergen Name Allergen Category Reaction Reaction Severity Criticality Documentation Date Start Date Code Code System Note Provider Name and Address Organization Details Recorded Time 2201 codeine medicatio n Not available Not available Not available 01/13/2019 2670 RxNorm MG Metzger MD 9 09:07:59 Medications Name Sig Start Date Stop Date Status Note LastModified by Organization Details LastModified Time azelastine 0.05 % eye drops active Not Available Not Available Not Available [place] Thyroid 90 mg tablet active Not Available Not Available Not Available atorvastatin 10 mg tablet active Not Available Not Available Not Available ofloxacin 0.3 % eye drops active Not Available Not Available Not Available benzonatate 200 mg capsule active Not Available Not Availab le Not Available [place] Thyroid 120 mg tablet active Not Available Not Availabl e Not Available [place] Thyroid 15 mg tablet active Not Available Not Available Not Available ofloxacin 0.3 % ear drops active Not Available Not Available Not Available prednisone 50 mg tablet active Not Available Not Available No t Available ibuprofen 600 mg tablet active Not Available Not Available No t Available fluticasone propionate 50 mcg/actuation nasal spray,suspensi on active Not Available Not Available Not Available amoxicillin 875 mg-potassium clavulanate 125 mg tablet active Not Available Not Availabl e Not Available oxycodone 5 mg tablet active Not Available Not Available Not Available Chantix Starting Month Box 0.5 mg (11)-1 mg (42) tablets in dose pack active Not Available Not Available No t Available Vitals Date Recorded Body height Provider Name an d Address Organization Details Last Updated DateTime 08/19/2018 160.02 cm Tiesha Avendano MD 08/19/2018 13:29:34 Date Recorded Body height Provider Name an d Address Organization Details Last Updated DateTime 08/19/2018 160.02 cm Hailey Avendano MD 08/19/2018 14:47:15 Date Recorded Heart rate Respiratory rate Body mass index (BMI) Body weight Systolic blood pressure Diastolic blood pressure Provider Name and Address Organization Details Last Updated DateTime 9 76 /min 12 /min 20.4 kg/m2 29422.1 2 g 124 mm[Hg] 68 mm[Hg] Jonathan Avendano MD [address] [place] [address], [phone], MG Avendano MD 9 18:59:35 Date Recorded Body height Body mass index (BMI) Body weight Provider Name and Address Organization Details Last Updated DateTime 01/13/2019 160.02 cm 20.9 kg/m2 78708.9 g Hailey Avendano MD 01/13/2019 09:07:50 Date Recorded Heart rate Respiratory rate Systolic blood pressure Diastolic blood pressure Provider Name and Address Organization Details Last Updated DateTime 01/13/2019 68 /min 12 /min 132 mm[Hg] 72 mm[Hg] Jonathan Avendano MD [address] [place] [address], [phone] , MG Avendano MD 01/31/2019 13:23:55 Social History Question Answer Notes LastModified by Organizat ion Details LastModified Time Tobacco Smoking Status Current Every Day Smoker Tiesha Alejandro MG bran MD 08/19/2018 13:29:37 What Was The Date Of Your Most Recent Tobacco Screening? 08/19/2018 Information n ot available 12/24/2018 Sex: Unknown Functional Status None recorded. Mental Status None recorded. Family History Relationship Description Onset Age of this Age Resolved Age Notes LastModified by Organization Details LastModified Time Father Cerebrovascu lar accident 48 [email or web address] Not available 19:01:38 Brother Coronary arterioscler osis 58 sgalizio Not available 2018 19:01:57 Medical History No medical history recorded. Gynecological HistoryNo gynecological history recorded. Obstetrics History GPAL:G 0 P 0 0 0 0 Past Encounters Encounter ID Performer Location Encounter Start Date Encounter Closed Date Diagnosis/Indication Diagnosis SNOMED-CT Code Diagnosis ICD10 Code [id number] Jonathan Avendano MD Main Office [address] [place] [phone] 08/19/2018 13:27:33 08/19/2018 14:01:03 [id number] Jonathan Avendano MD Main Office [address] [place] [phone] 01/13/2019 09:03:34 01/13/2019 09:29:20 Health Concerns Section Related Observation LastModified by Organization Detai ls LastModified Time None Recorded Concern Status LastModified by Organization Details LastModified Time None Recorded Advance Directives Directive None Recorded Payers Encounter Date Sequence Insurance Name Policy Number Policy Cardona Covered Member ID Cardona Member ID Guarantor Name 08/19/2018 1 [place] [id number] Leidy Soriano [id number] Leidy Soriano 08/19/2018 1 [place] [facility] [id number] Leidy Soriano [id number] Leidy Soriano 01/13/2019 1 [place] [facility] [id number] Leidy Soriano [id number] Leidy Soriano Notes Date Note Type Note Provider Name and Address Organization Details Recorded Time 08/19/2018 text/html HPI Notes: Had stress test years ago Works for [employer] (stressful job) No CP Has had SOB ? worse with exertion CXR showed moderate chronic changes Concerned about heart disease with sx and + FHx Jonathan Avendano MD [address] [place] [address], [phone], MG Avendano MD 08/19/2018 19:04:51 01/13/2019 text/html HPI Notes: The patient had an echo done which was a normal study. Stress test showed nondiagnostic EKG changes for ischemia. Patient denies any symptomatic complaints of chest pain or shortness of breath. Jonathan Avendano MD [address] [place] [address], [phone], MG Avendano MD 01/31/2019 13:24:55 OBGyn Episode No OBEpisode recorded.
--- OUTSIDE RECORDS SUMMARY | 2024-03-17 11:15 | XMS_ITS | Encounter Summary ---
Author Organization [facility] [place] [address] Care Team Providers Care Sales And Service Technician Name Role Phone Unavailable Primary Care Provider Unavailabl e Reason for Referral * Consultation (Routine) - Authorized Specialty Diagnoses / Procedures Referred By Contac t Referred To Contact Otolaryngology Diagnoses Tympanic sclerosis, left Gulshan Aquino MD [address] [place] [address] [facility] [address] [place] [phone] Referral ID Status Reason Start Date Expiration Date Visits Requested Visits Authorized [id number] Authorized Consult, Test & Treat 09/13/2023 09/12/2024 1 1 Encounter Details Date Type Department Care Team (Late Contact Info) Description 09/13/2023 Transcribe Orders eDH Incoming Referrals [phone] Gulshan Aquino MD [address] [place] [id number] Tympanic sclerosis, left Social History Tobacco Use Types Packs/Day Years Used Date Smoking Tobacco: Never Assessed Sex and Gender Information Value Date Recorded Sex Assigned at Not on file Gender Identity Not on file Sexual Orientation Not on file documented as of this encounter Plan of Treatment Upcoming Encounters Date Type Department Care Team (Late Contact Info) Description 04/14/2024 10:45 AM EST Office [place] [address] Juju Cloud [facility] [place] [address] Scheduled Referrals Name Type Priority Associated Diagnoses Orde r Schedule Referral to ENT Outpatient Referral Routine Tympanic sclerosis, left Ordered: 09/13/2023 documented as of this encounter Visit Diagnoses Diagnosis Tympanic sclerosis, left documented in this encounter
--- OUTSIDE RECORDS SUMMARY | 2024-03-17 11:16 | XMS_ITS | Data Portability ---
Author Organization [facility] Address [address] [address] Care Team Providers Care Analytical Statistician Name Role Phone RODOLFO ARIAS Primary Care Provider [phone] Assessment Encounter Date Assessment Date Assessment LastModified [...] She will follow up at 3 months. [email or web address] Not available 12/01/2018 15:19:35 04/12/2019 04/12/2019 She is here for a postop check s/p Laparoscopic sacrocolpopexy, cystoscopy. She has only slight incontinence, and no prolapse or voiding dysfunction. She has recovered well from surgery. She will follow up at 12 months. [email or web address] Not available 04/12/2019 14:42:47 09/25/2020 09/25/2020 60-year-old [...] Lab urinalysis complete, reflex culture 2018 019 [facility], [address] [place], [address], 9 17:46:01 urinalysis complete, reflex culture 2018 019 [place] [facility], [address] [place] [address] [address], [place], [address], 9 13:57:53 Referral None recorded. Procedures None recorded. Surgeries None recorded. Imaging None recorded. Medication Orders None recorded. Patient TargetsNo targets recorded. Patient InstructionsNo instructions recorded. Reason for Referral Urogynecologist Referral for Urinary incontinence Referring Physician: Irwin Trejo SERVICE SUPPORT REPRESENTATIVE, Encounter Date: 08/14/2018 Gynecologic Oncologist Refer ral for Neoplasm of uncertain behavior of ovary referral for 17 cm ovarian cyst in postmenopausal women Referring Physician: Irwin Trejo SERVICE SUPPORT REPRESENTATIVE, Encounter Date: 09/10/2018 Results Created Date Observation Date Name Description Value Unit Range Abnormal Flag Note LastModifiedBy Organization Detail LastModifiedTime 11/10/1911/10/2018 CBC white blood cell count 7.4 thous and/u L 3.8-10 .8 normal Not Available [facility] [place] [facility] [address], [address], 11/10/2018 00:48:55 11/10/19 19 11/10/2018 CBC red blood cell count 4.59 kristen on/uL 3.80-5 .10 normal Not Available [facility] [address] [place], [address], 11/10/2018 00:48:55 11/10/1911/10/2018 CBC hemoglobin 13.9 g/dL 11.7-1 5.5 normal Not Available [facility] [place] [facility] [address], [place], [address], 11/10/2018 00:48:55 11/10/1911/10/2018 CBC hematocrit 41.1 % 35.0-4 5.0 normal Not Available [facility] [place] [facility] [address] [place], [place], [address], 11/10/2018 00:48:55 11/10/1911/10/2018 CBC MCV 89.5 fL 80.0-1 00.0 normal Not Available [facility] [place] [facility] [address], [place], [address], 11/10/2018 00:48:55 11/10/1911/10/2018 CBC MCH 30.3 pg 27.0-3 3.0 normal Not Available [facility] [place] [facility] [address], [place], [address], 11/10/2018 00:48:55 11/10/1911/10/2018 CBC MCHC 33.8 g/dL 32.0-3 6.0 normal Not Available [facility] [address], [place], [address], 11/10/2018 00:48:55 11/10/1911/10/2018 CBC RDW 11.5 % 11.0-1 5.0 normal Not Available [facility] [address], [place], [address], 11/10/2018 00:48:55 11/10/1911/10/2018 CBC platelet count 346 thous and/u L 140-40 0 normal Not Available [facility] [place] [facility] [address] [place], [place], [address], 11/10/2018 00:48:55 11/10/1911/10/2018 CBC MPV 8.7 fL 7.5-12 .5 normal Not Available [facility] [place] [facility] [address] [place], [place], [address], 11/10/2018 00:48:55 11/10/1911/10/2018 BMP, serum or plasm a glucose 95 mg/dL 65-99 normal Fasti ng refer ence inter mariluz Not Available [facility] [address] [place], [place], [address], 11/10/2018 01:15:33 11/10/1911/10/2018 BMP, serum or plasm a urea nitrogen (BUN) 21 mg/dL 7-25 normal Not Available [facility] [address], [place], [address], 11/10/2018 01:15:33 11/10/1911/10/2018 BMP, serum or plasm a creatinine 0.82 mg/dL 0.50-1 .05 normal For patie nts >49 years of age, the refer ence limit for Creat inine is appro ximat zach 13% highe r for peopl e ident ified as Afric an-Am joesph n. Not Available [facility] [address], [place], [address], 11/10/2018 01:15:33 11/10/1911/10/2018 BMP, serum or plasm a eGFR non-afr. mozambican 78 mL/mi n/1.7 3m2 > or = 60 normal Not Available [facility] [address], [place], [address], 11/10/2018 01:15:33 11/10/19 19 11/10/2018 BMP, serum or plasm a eGFR 91 mL/mi n/1.7 3m2 > or = 60 normal Not Available [facility] [place] [facility] [address] [place], [address], 11/10/2018 01:15:33 11/10/1911/10/2018 BMP, serum or plasm a BUN/creatini ne ratio NOT APPLIC ABLE (calc ) 6-22 normal Not Available [facility] [address] [place], [address], 11/10/2018 01:15:33 11/10/1911/10/2018 BMP, serum or plasm a sodium 142 mmol/ L 135-14 6 normal Not Available [facility] [address] [place], [address], 11/10/2018 01:15:33 11/10/1911/10/2018 BMP, serum or plasm a potassium 4.3 mmol/ L 3.5-5. 3 normal Not Available [facility] [address] [place], [place], [address], 11/10/2018 01:15:33 11/10/1911/10/2018 BMP, serum or plasm a chloride 104 mmol/ L 98-110 normal Not Available [facility] [address] [place], [address], 11/10/2018 01:15:33 11/10/1911/10/2018 BMP, serum or plasm a carbon dioxide 31 mmol/ L 20-32 normal Not Available [facility] [address] [place], [address], 11/10/2018 01:15:33 11/10/1911/10/2018 BMP, serum or plasm a calcium 9.7 mg/dL 8.6-10 .4 normal Not Available [facility] [place] [facility] [address], [place], [address], 11/10/2018 01:15:33 11/16/19 19 11/15/2018 [facility] cytol ogy [id number] Final Diagn osis Pelvi c washi ng: [...] tted in casse tte A1/LA Not Available [facility] ? Lab [address], [place], [address] 11/19/2018 07:28:09 11/17/19 19 11/16/2018 [facility] surgi leann patho logy [id number] Submi tting MD: Polina jiménez II, MD [...] the ovari an cyst revea ls a veans-w delia treasure h wall with two thick [...] tc tc/ 019 Dian SELLERS Not Available [facility] [place] ? Lab [address] [facility] [address], [place], [address] 11/20/2018 14:27:17 12/02/1912/01/2018 UA, urina lysis refle x cultu re color,urine Yellow yellow Not Available [facility] [place] ? Lab [address] [facility] [address], [place], [address] 12/01/2018 17:46:01 12/02/1912/01/2018 UA, urina lysis refle x cultu re clarity,urin e Clear clear Not Available [facility] ? Lab [address] [facility] [address], [place], [address] 12/01/2018 17:46:01 12/02/1912/01/2018 UA, urina lysis refle x cultu re pH, urine 5.0 5.0-8. 0 normal Not Available [facility] [place] ? Lab [address] [facility] [address], [place], [address] 12/01/2018 17:46:01 12/02/1912/01/2018 UA, urina lysis refle x cultu re specific gravity,urin e 1.019 1.003- 1.030 normal Not Available [facility] [place] ? Lab [address] [facility] [address], [place], [address] 12/01/2018 17:46:01 12/02/1912/01/2018 UA, urina lysis refle x cultu re blood,urine Negati ve mg/dL negati ve Not Available [facility] ? Lab [address] [facility] [[email or web address] [address], [place], [address] 12/01/2018 17:46:01 12/02/1912/01/2018 UA, urina lysis refle x cultu re protein,urin e Negati ve mg/dL negati ve Not Available [facility] ? Lab [address] [facility] [[email or web address] [address], [place], [address] 12/01/2018 17:46:01 12/02/1912/01/2018 UA, urina lysis refle x cultu re glucose,urin e (UA) Negati ve mg/dL negati ve Not Available [facility] ? Lab [address] [facility] [[email or web address]] [address], [place], [address] 12/01/2018 17:46:01 12/02/1912/01/2018 UA, urina lysis refle x cultu re ketones,urin e Negati ve mg/dL negati ve Not Available [facility] ? Lab [address] [facility] [[email or web address]] [address], [place], [address] 12/01/2018 17:46:01 12/02/1912/01/2018 UA, urina lysis refle x cultu re nitrate,urin e Negati ve negati ve Not Available [facility] ? Lab [address] [facility] [[email or web address]] [address], [place], [address] 12/01/2018 17:46:01 12/02/1912/01/2018 UA, urina lysis refle x cultu re bilirubin,ur ine Negati ve mg/dL negati ve Not Available [facility] ? Lab [address] [facility] [[email or web address]] [address], [place], [address] 12/01/2018 17:46:01 12/02/1912/01/2018 UA, urina lysis refle x cultu re urobilinogen ,urine Normal mg/dL normal Not Available [facility] ? Lab [address] [facility] [[email or web address]] [address], [place], [address] 12/01/2018 17:46:01 12/02/1912/01/2018 UA, urina lysis refle x cultu re leukocyte esterase,uri ne Negati ve negati ve Not Available [facility] ? Lab [address], [place], [address] 12/01/2018 17:46:01 04/12/20 19 04/13/2019 urina lysis compl ete, refle x cultu re color YELLOW yellow normal Not Available [facility] [place] [facility] [address], [place], [address], 04/13/2019 13:57:53 04/12/2004/13/2019 urina lysis compl ete, refle x cultu re appearance CLEAR clear normal Not Available [facility] [place] [facility] [address], [place], [address], 04/13/2019 13:57:53 04/12/2004/13/2019 urina lysis compl ete, refle x cultu re specific gravity 1.015 1.001- 1.035 normal Not Available [facility] [place] [facility] [address], [place], [address], 04/13/2019 13:57:53 04/12/2004/13/2019 urina lysis compl ete, refle x cultu re pH 5.5 5.0-8. 0 normal Not Available [facility] [place] [facility] [address], [place], [address], 04/13/2019 13:57:53 04/12/2004/13/2019 urina lysis compl ete, refle x cultu re glucose NEGATI VE negati ve normal Not Available [facility] [place] [facility] [address], [place], [address], 04/13/2019 13:57:53 04/12/2004/13/2019 urina lysis compl ete, refle x cultu re bilirubin NEGATI VE negati ve normal Not Available [facility] [place] [facility] [address], [place], [address], 04/13/2019 13:57:53 04/12/20 19 04/13/2019 urina lysis compl ete, refle x cultu re ketones NEGATI VE negati ve normal Not Available [facility] [place] [facility] [address], [place], [address], 04/13/2019 13:57:53 04/12/2004/13/2019 urina lysis compl ete, refle x cultu re occult blood NEGATI VE negati ve normal Not Available [facility] [place] [facility] [address], [place], [address], 04/13/2019 13:57:53 04/12/2004/13/2019 urina lysis compl ete, refle x cultu re protein NEGATI VE negati ve normal Not Available [facility] [place] [facility] [address], [address], 04/13/2019 13:57:53 04/12/2004/13/2019 urina lysis compl ete, refle x cultu re nitrite NEGATI VE negati ve normal Not Available [facility] [place] [facility] [address], [place], [address], 04/13/2019 13:57:53 04/12/2004/13/2019 urina lysis compl ete, refle x cultu re leukocyte esterase NEGATI VE negati ve normal Not Available [facility] [place] [facility] [address], [place], [address], 04/13/2019 13:57:53 04/12/2004/13/2019 urina lysis compl ete, refle x cultu re WBC NONE SEEN /hpf 0-5 normal Not Available [facility] [place] [facility] [address], [address], 04/13/2019 13:57:53 04/12/2004/13/2019 urina lysis compl ete, refle x cultu re RBC NONE SEEN /hpf 0-2 normal Not Available [facility] [place] [facility] [address], [address], 04/13/2019 13:57:53 04/12/20 19 04/13/2019 urina lysis compl ete, refle x cultu re squamous epithelial cells NONE SEEN /hpf < or = 5 normal Not Available [facility] [place] [facility] [address], [address], 04/13/2019 13:57:53 04/12/2004/13/2019 urina lysis compl ete, refle x cultu re bacteria NONE SEEN /hpf none seen normal Not Available [facility] [place] [facility] [address], [address], 04/13/2019 13:57:53 04/12/20 19 04/13/2019 urina lysis compl ete, refle x cultu re hyaline cast NONE SEEN /lpf none seen normal Not Available [facility] [place] [facility] [address] [place] [address], [address], 04/13/2019 13:57:53 04/12/20 19 04/13/2019 cultu re, urine reflexive urine culture NO CULTUR E INDICA MARIA DEL CARMEN Not Available [facility] [address] [place] [address], [address], 04/13/2019 13:57:53 Result Notes None recorded. Problems Name Problem SNOMED Code Status Onset Date Resolution Date Notes Provider Name and Address Organization Details Recorded Time Cyst of ovary 05873189 Active 019 POLINA GUEVARA II, MD [address] [place] [address], [phone] , [facility] 10/14/2018 10:25:05 Problem Notes None recorded. Procedures Surgical History Date Name Laterality Status Provider Name and Address Organization Details Recorded Time 11/17/19 19 Laparoscopy surg colpopexy completed Luz Torres, MD [address] [place], [address], [facility] 12/01/2018 15:20:17 09/15/19 19 Hysteroscopy (Office) completed IRWIN TREJO MD [address] [place] [address], [phone], [facility] 09/14/2018 16:25:07 06/02/19 15 [facility] 11:12:15 06/02/19 13 [facility]idectomy [facility] 08/14 11:11:29 Appendectomy completed IRENE BARRETO NP [address] [place] [address], [address], [facility] 10/14/2018 10:28:36 procedure on nasal septum completed IRENE BARRETO NP [address] [place] [address], [phone], [facility] 10/14/2018 10:29:06 Imaging Results None recorded. Procedure Notes None recorded. Medical Equipment None Reported. Allergies Allergen ID Allergen Name Allergen Category Reaction Reaction Severity Criticality Documentation Date Start Date Code Code System Note Provider Name and Address Organization Details Recorded Time 465716 codeine medicatio n Not available Not available Not available 08/14/[address] [facility] 9 11:13:21 Medications Name Sig Start Date Stop Date Status Note LastModified by Organization Details LastModified Time [place] Thyroid 90 mg tablet Take 1 tablet every day by oral route. active [place] thyroid 15mg in the afternoon Not Available [...] Updated DateTime 9 160.02 cm 20.9 kg/m2 05322.9 g 84 /min 98 [degF] 117 mm[Hg] 66 mm[Hg] Carleen Soriano [facility] 9 11:34:43 Date Recorded Body height Body mass index (BMI) Body weight Heart rate Systolic blood pressure Diastolic blood pressure Provider Name and Address Organization Details Last Updated DateTime 9 160.02 cm 21.9 kg/m2 61257.3 g 83 /min 154 mm[Hg] 77 mm[Hg] Jenni Pacheco [facility] 9 13:51:32 Date Recorded Body weight Heart rate Systolic blood pressure Diastolic blood pressure Provider Name and Address Organization Details Last Updated DateTime 09/25/2020 52045.82 g 85 /min 137 mm[Hg] 70 mm[Hg] Alissa Anish [facility] 09/25/2020 08:43:47 Social History Question Answer Notes LastModified by Organization Details LastModified Time Tobacco Smoking Status Current Every Day Smoker quit for 7 weeks Jenni Pacheco [facility] 04/12/2019 13:52:15 What Is Your Level Of Alcohol Consumption? Occasional Information not available 10/14/2018 Is Blood Transfusion Acceptable In An Emergency? Yes Information not available 08/14/2018 What Is Your Level Of Caffeine Consumption? 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 With Others Daughter [email or web address] Information not available 08/14/2018 Are You Being Threatened/ Abused By Someone? No [email or web address] Information not available 08/14/2018 Self Breast Exam Yes Information not available 08/14/2018 Marital Status Informatio n not available 08/14/2018 What Was The Date Of Your Most Recent Tobacco Screening? 12/01/2018 Information not available 12/23/2018 How Many Children Do You Have? 2 Information not available 10/14/2018 Seat Belts Used Routinely Yes [email or web address] Information not available 08/14/2018 Are You Sexually Active? No Information not available 10/14/2018 Smoke Alarm In Home Yes [email or web address] Information not available 08/14/2018 How Much Tobacco Do You Smoke? 1 PPD 15 Cigarettes Per Day Information not available 10/14/2018 Sex: Unknown Functional Status Question Answer Note LastModified by Organization D etails LastModified Time What is your exercise level? None [email or web address] Information not available 08/14/2018 Mental Status None recorded. Family History Relationship Description Onset Age of this Age Resolved Age Notes LastModified by Organization Details LastModified Time Father Family history of stroke [email or web address] Not available 2018 11:23:18 Father Hypertensive disorder [email or web address] Not available 2018 11:23:50 Father Alcoholism Not availa ble 08/14/2018 11:24:19 Sister Hypertensive disorder [email or web address] Not available 2018 11:23:50 Mother Hypercholest erolemia [email or web address] Not available 2018 11:24:01 Daughter Alcoholism Not avai lable 08/14/2018 11:24:19 Unspecified Relation Malignant tumor of breast [email or web address] Not available 2018 11:24:31 Unspecified Relation Malignant tumor of colon [email or web address] Not available 2018 11:24:40 Medical History Condition Response hypothyroidism cancer Y kidney disease N lung disorder Y other urinary tract infection N heart [...] quadrivalent, preservative 03/02/2019 completed Jenni bran [facility] 04/12/2019 13:51:13 Past Encounters Encounter ID Performer Location Encounter Start Date Encounter Closed Date Diagnosis/Indication Diagnosis SNOMED-CT Code Diagnosis ICD10 Code [id number] IRWIN TREJO MD [facility] SERVICE SUPPORT REPRESENTATIVE- OFFICE [address] [place] [address] [place] [address] 08/14/2018 10:34:28 08/14/2018 11:35:05 Postmenopausal bleeding 53503555 N95.0 Gynecologi c examination 44722027 Z01.419 Urinary incontinence 165 731758 R32 Cystocele 246145889 N81. 10 [id number] MD 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 SERVICE SUPPORT REPRESENTATIVE- OFFICE [address] [address] 09/14/2018 14:16:50 09/14/2018 15:14:07 Postmenopausal bleeding 54792096 N95.0 [id number] POLINA GUEVARA II, MD [facility] AMPOULE WASHING MACHINE OPERATOR. [facility] [address] [place] [address] 10/14/2018 10:10:23 10/14/2018 12:44:01 Cyst of ovary 37695765 N83.209 [id number] Luz Torres MD [facility] AMPOULE WASHING MACHINE OPERATOR. [facility] [address] [place] [address] 10/14/2018 10:55:33 10/15/2018 11:18:28 Uterovaginal prolapse 60570468 N81.4 Atrophic vaginitis 13563 000 N95.2 Mixed urin cynthia incontinence 377191921 N39.46 Incomplete emptying of urinary bladder 115741128 R39.14 Tobacco de pendence syndrome 96483229 F17.200 [id number] MD SELWYN [facility] [place] SERVICE SUPPORT REPRESENTATIVE- OFFICE [address] [address] 11/09/2018 09:48:13 11/09/2018 10:45:37 Uterovaginal prolapse 62462197 N81.4 Atrophic vaginitis 54047 000 N95.2 Mixed urin cynthia incontinence 979290900 N39.46 Incomplete emptying of urinary bladder 445355892 R39.14 Tobacco de pendence syndrome 68535748 F17.200 Pre-surgery testing 1104 [address] Z01.89 [id number] Luz Torres MD [facility] AMPOULE WASHING MACHINE OPERATOR. [facility] [address] [place] [address] 12/01/2018 10:35:22 12/01/2018 14:16:20 Uterovaginal prolapse 31106011 N81.4 Atrophic vaginitis 02171 000 N95.2 Tobacco de pendence syndrome 50630450 F17.200 Incomplete emptying of urinary bladder 146608035 R39.14 [id number] POLINA GUEVARA II, MD [facility] AMPOULE WASHING MACHINE OPERATOR. [facility] [address] [place] [address] 12/01/2018 10:36:08 12/01/2018 12:04:59 Cyst of ovary 85295291 N83.209 [id number] Luz Torres MD [facility] [place] SERVICE SUPPORT REPRESENTATIVE- OFFICE [address] [address] 04/12/2019 13:45:42 04/12/2019 14:25:36 Uterovaginal prolapse 28596556 N81.4 Atrophic vaginitis 13637 000 N95.2 Tobacco de pendence syndrome 65790277 F17.200 Incomplete emptying of urinary bladder 444138473 R39.14 [id number] IRWIN TREJO MD [facility] SERVICE SUPPORT REPRESENTATIVE- OFFICE [address] [address] 09/25/2020 08:27:58 09/25/2020 08:57:02 Gynecologic examination 12981766 Z01.419 [id number] ZACHARY VARGAS MD [facility] [address] [place] [address] 07/18/2021 09:48:09 07/18/2021 10:24:14 Omphalitis 504542312 L08.82 Health Concerns Section Related Observation LastModified by Organization Detai ls LastModified Time None Recorded Concern Status LastModified by Organization Details LastModified Time None Recorded Advance Directives Directive None Recorded Payers Encounter Date Sequence Insurance Name Policy Number Policy Cardona Covered Member ID Cardona Member ID Guarantor Name 12/01/2018 1 [place] [id number] Priya Soriano [id number] Priya Soriano 12/01/2018 1 [place] [id number] Priya Soriano [id number] Priya Soriano 04/12/2019 1 [place] [id number] Priya Soriano [id number] Priya Soriano 09/25/2020 1 [place] [facility] [id number] Priya Soriano [id number] Priya Soriano 07/18/2021 1 [place] [facility] [id number] Priya Soriano [id number] Priya Soriano Notes Date Note Type Note Provider Name and Address Organization Details Recorded Time 12/01/2018 text/html HPI Notes: doing well quit smoking! some twinges of pain occasisionally Luz Torres MD [address] [place] [address], [phone], [facility] 12/01/2018 15:20:36 12/01/2018 text/html HPI Notes: [...] a large ovarian cyst. She had undergone KNURLING MACHINE OPERATOR screening exam and was noted to have a large cystocele and complaints of urinary urgency and incontinence. Pelvic ultrasound evaluation was performed and notable for a 17 cm probable right ovarian cyst. CA-125 was normal range. Screening Pap smear was normal. POLINA GUEVARA II, MD [address] [place] [address], [address], [facility] 12/01/2018 11:51:07 04/12/2019 text/html HPI Notes: doing well quit smoking- and restarted again. Trying again to quit. leaks if she drinks coke slight leaking with coughing. Luz Torres MD [address] [place] [address], [phone], [facility] 04/12/2019 14:43:17 09/25/2020 text/html HPI Notes: [...] with Dr. Luz Torres. She had undergone [employer] screening exam and was noted to have [...] had thyroid removal 6 years ago and [facility]. Her other surgeries include surgery for deviated nasal septum and gallbladder surgery. Patient smokes about three fourths of a pack per day for the past 30 years. x2 in [place]. Pap smear done on 08/14/18 is normal cytology with negative HPV testing. IRWIN TREJO MD [address] [place] [address], [phone], [facility] 09/29/2020 14:40:22 07/18/2021 text/html HPI Notes: Sandra crandall is referred to me for omphalitis. She reports that she had some drainage around her belly button about 6 weeks ago which is now completely resolved. It is not hurting or bothering her. She has myriad other complaints it is not related to her recent issues with omphalitis. ZACHARY VARGAS MD [address] [place] [address], [phone], [facility] - [facility] [place] - [facility] 07/18/2021 10:58:05 OBGyn Episode Ob Episode Information Episode Created Date Number of Fetuses Patient Bloodtype Patient rh Status Prepregnancy Weight lbs Domestic Partner Domestic Partner Phone Father Name Circular Sawyer Stone Status 08/15/19 19 1 CLOSED Fetus Data First Name Last Name Admitted to NICU Weight (g) Sex Living Outcome Pediatric Complications Fetus ID Race Codes Race Delivery Type 3798.83 3 F Full Term [id number] Milton Calculation Initial Milton Date Initial Exam [...] Domestic Partner Domestic Partner Phone Father Name Circular Sawyer Stone Status 08/15/19 19 1 CLOSED Fetus Data First Name Last Name Admitted to NICU Weight (g) Sex Living Outcome Pediatric Complications Fetus ID Race Codes Race Delivery Type 3685.43 5 F Full Term [id number] Mitlon Calculation Initial Milton Date Initial Exam Date [...] Post Complications Tubal Sterilization Discharge Date Comments 01/01/198 0 40 4 [place] Discharge Information Feeding Method Contraceptive Method Maternal HG B and HCT Levels
[2024-03-17 12:08] LABS: Abs Immature Grans 0.03 10^3/uL (0.0-0.06); Absolute Basophil Count 0.02 10^3/uL (0.0-0.2); Absolute Eosinophil Count 0.01 10^3/uL (0.0-0.7); Absolute Lymphocyte Count 1.38 10^3/uL (1.2-3.4); Absolute Monocyte Count 0.45 10^3/uL (0.1-0.8); Absolute Neutrophil Count 5.25 10^3/uL (1.2-6.7); Basophils % 0.3 %; Eosinophils % 0.1 %; HCT 38.6 % (36.0-46.0); Immature Grans % 0.4 %; Lymphocytes % 19.3 %; MCH 30.2 pg (27.0-33.0); MCHC 33.7 % (32.0-36.0); MCV 90 fL (80-95); Monocytes % 6.3 %; Neutrophils % 73.6 %; RDW 12.2 % (11.7-14.6); RDW-SD 39.5 fL; WBC 7.14 10^3/uL (4.4-10.8)
[2024-03-17 12:27] LABS: ALT 25 U/L (14-59); AST 20 U/L (15-37); Albumin 4.3 g/dL (3.4-5.0); Alkaline Phosphatase 125 U/L (46-116); Anion Gap 8.2 mmol/L (3-11); BUN 19 mg/dL (7-18); Bilirubin, Total 0.46 mg/dL (0.2-1.0); CO2 30.8 mmol/L (21.0-32.0); Calcium 9.9 mg/dL (8.5-10.1); Chloride 105 mmol/L (98-107); Estimated GFR 62.91 (mL/min/1.73m2); Glucose 93 mg/dL (74-106); Magnesium 2.3 mg/dL (1.8-2.4); Sodium 144 mmol/L (136-145); Total Protein 7.7 g/dL (6.4-8.2)
[2024-03-17 12:28] LABS: Troponin I < 4 ng/L (<or=51)
--- NOTE | 2024-03-17 12:39 | NUR.NOTE ---
Lab called stating that corrected platelet result: aggregate appear normal, no exact count, redraw if want exact count. To Dr Oropeza. Nursing Note:
[2024-03-17] MEDS: Aspirin 81 MG CHEW PO (13:22)
--- NOTE | 2024-03-17 13:56 | ED.GENADUL_ITS ---
Discharge Plan Disposition Patient Disposition: Home Condition: Good Discharge Details Clinical Impression: Lightheadedness, Orthostatic hypotension, Chest discomfort, Anxiety Primary Care Provider: Unknown,Unknown ED Provider: Luana Verma Home Meds and New Rx's Prescriptions: Continued levothyroxine 137 mcg Tablet 137 mcg PO DAILY ascorbic acid (vitamin C) [Vitamin C] 1,000 mg Tablet 1 g PO DAILY atorvastatin 10 mg Tablet 10 mg PO QHS vitamin E 600 unit Capsule 600 unit PO DAILY potassium chloride 10 mEq Tablet Extended Release 10 meq PO DAILY simethicone 60 mg Tablet 120 mg PO DAILY calcium phos,dibas-vitamin D3 77-400 mg-unit Tablet 1 tab PO DAILY Centrum 18-400 mg-mcg Tablet 1 tab PO DAILY vitamin T16-fewfo acid 1,000-400 mcg Tablet, Sublingual 1 tab sublingual DAILY fluoxetine 10 mg capsule 10 mg PO DAILY alprazolam 0.25 mg tablet 0.25 mg PO DAILY Discharge Instructions Instructions: Orthostatic hypotension, Chest Pain, Adult ED Additional Instructions: Your labs, EKG and x-ray are reassuring here today. I am referring you to local primary care and of asked for prompt follow-up so that your stress test and cardiology may also be established quickly. I would encourage you to increase fluid intake and go slow when getting upright, especially when you experience your dizziness. Please continue with the daily baby aspirin. While checking your blood pressure intermittently can be of benefit, I am concerned that the frequency with which you are checking it may be increasing her anxiety and stress. If you develop increased pain, shortness of breath, new/worsening symptoms please seek care urgently once again. HPI General Date/Time Provider Initiated Documentation: 03/17/24 11:25 . Limitations to Documentation: no limitations . Information obtained by: patient, family, RN notes reviewed and old records reviewed . History of Present Illness 63 year old F presents to the emergency department with the chief complaint of Chest pain, lightheadedness, described as mild, Quality is described as aching, and is localized to the chest. Patient reports no radiation. Patient started experiencing this week(s) and it has been intermittent. No relieving factors improve symptom(s), Other factors that worsen symptoms (Worse first thing in the morning when she is just waking up) . Patient notes chest pain; denies cough, fever/chills, headaches, loss of appetite, nausea/vomiting, shortness of breath and syncope (Has had some episodes of presyncope when standing.). Patient did receive the following treatments prior to arrival, none Related Data Home Medications ?Medication ?Instructions ?Recorded ?Confirmed ascorbic acid (vitamin C) 1,000 mg 1 g PO DAILY 12/02/20 03/17/24 tablet (Vitamin C) atorvastatin 10 mg tablet 10 mg PO QHS 12/02/20 03/17/24 calcium phosphate,dibasic 77 1 tab PO DAILY 12/02/20 03/17/24 mg-vitamin D3 400 unit tablet levothyroxine 137 mcg tablet 137 mcg PO DAILY 12/02/20 03/17/24 multivitamin-ferrous 1 tab PO DAILY 12/02/20 03/17/24 fumarate-folic acid 18 mg-400 mcg tablet (Centrum) potassium chloride 10 mEq 10 meq PO DAILY 12/02/20 03/17/24 tablet,extended release simethicone 60 mg tablet 120 mg PO DAILY 12/02/20 03/17/24 vitamin B12 1,000 mcg-folic acid 1 tab sublingual DAILY 12/02/20 03/17/24 400 mcg sublingual tablet vitamin E 600 unit capsule 600 unit PO DAILY 12/02/20 03/17/24 alprazolam 0.25 mg tablet 0.25 mg PO DAILY 03/17/24 03/17/24 fluoxetine 10 mg capsule 10 mg PO DAILY 03/17/24 03/17/24 Allergies Allergy/AdvReac Type Severity Reaction Status Date / Time codeine AdvReac Unknown Unverified 03/17/24 11:12 General Stated Complaint: Chest Pain TAYLOR: 3 Review of Systems Constitutional Constitutional: Reports as per HPI, Denies chills, Denies fever(s), Denies headache(s), Denies lethargy and Denies poor appetite Eyes Eyes: Denies change in vision ENT Ears, Nose, Mouth, and Throat: Denies headache(s) Cardiovascular Cardiovascular: Reports as per HPI, Denies dyspnea and Denies dyspnea on exertion Respiratory Respiratory: Reports as per HPI, Denies chest congestion, Denies cough, Denies pain on inspiration, Denies pain with cough, Denies dyspnea and Denies dyspnea on exertion Gastrointestinal Gastrointestinal: Reports as per HPI, Denies abdominal pain, Denies diarrhea, Denies nausea and Denies vomiting Musculoskeletal Musculoskeletal: Reports as per HPI and Denies back pain Integumentary/Breasts Skin/Breast: Reports as per HPI and Denies rash Neurologic Neurologic: Reports as per HPI and Denies headache(s) Exam Const General: cooperative, healthy appearing, comfortable, no acute distress and well developed Nutritional Appearance: average body habitus and well nourished Orientation: alert, awake and oriented x3 [facility] Head: normal to inspection Ears: hearing grossly normal bilaterally Mouth: moist mucous membranes Chest Chest: normal inspection of the chest, normal palpation of entire chest wall and no crepitus Resp Effort & Inspection: normal respiratory effort, able to speak in complete sentences and no respiratory distress Auscultation: clear to auscultation bilaterally, no rales, no rhonchi and no wheezes Cardio Rate: regular rate Rhythm: regular rhythm Heart Sounds: S1 normal and S2 normal GI Inspection: normal to inspection, no edema and non-distended Palpation: soft, no hepatosplenomegaly, not rigid and nontender Skin General skin exam: no rashes or lesions noted Trauma: no lacerations or abrasions Neuro General: patient alert, patient awake and patient oriented x3 Cognition: normal cognition Speech: speech normal Gait: normal gait Extrem General: normal to inspection, capillary refill normal, no pedal edema, no calf tenderness and normal gait Course Vital Signs Vital signs: Vital Signs Temperature 36.7 C 03/17/24 11:07 Pulse 85 03/17/24 11:07 Respiratory Rate 16 03/17/24 11:07 Blood Pressure 159/77 H 03/17/24 11:07 Pulse Oximetry 98 03/17/24 11:07 Temperature 36.7 C 03/17/24 11:07 Temperature Source Tympanic 03/17/24 11:07 Pulse 85 03/17/24 11:07 Respiratory Rate 16 03/17/24 11:07 Respiratory Effort Normal 03/17/24 11:24 Blood Pressure 159/77 H 03/17/24 11:07 Pulse Oximetry 98 03/17/24 11:07 Lab/Test Results Lab/Test Results: Laboratory Tests Range/Units 03/17/24 12:00 WBC (4.4-10.8) 10^3/uL 7.14 RBC (3.93-5.22) 10^6/uL 4.30 Hgb (11.2-15.7) g/dL 13.0 Hct (36.0-46.0) % 38.6 MCV (80-95) fL 90 MCH (27.0-33.0) pg 30.2 MCHC (32.0-36.0) % 33.7 RDW (11.7-14.6) % 12.2 Plt Count (130-400) 10^3/uL MPV (8.0-11.0) fL Immature Gran % % 0.4 Neutrophils % % 73.6 Lymphocytes % % 19.3 Monocytes % % 6.3 Eosinophils % % 0.1 Basophils % % 0.3 Nucleated RBC % (0.0-0.3) % 0.0 Absolute Neutrophils (1.2-6.7) 10^3/uL 5.25 Absolute Lymphocytes (1.2-3.4) 10^3/uL 1.38 Absolute Monocytes (0.1-0.8) 10^3/uL 0.45 Absolute Eosinophils (0.0-0.7) 10^3/uL 0.01 Absolute Basophils (0.0-0.2) 10^3/uL 0.02 Sodium (136-145) mmol/L 144 Potassium (3.5-5.1) mmol/L 4.0 Chloride (98-107) mmol/L 105 Carbon Dioxide (21.0-32.0) mmol/L 30.8 Anion Gap (3-11) mmol/L 8.2 BUN (7-18) mg/dL 19 H Creatinine (0.55-1.02) mg/dL 1.0 Est GFR (CKD-EPI 2020) (mL/min/1.73m2) 62.91 Glucose (74-106) mg/dL 93 Calcium (8.5-10.1) mg/dL 9.9 Magnesium (1.8-2.4) mg/dL 2.3 Total Bilirubin (0.2-1.0) mg/dL 0.46 AST (15-37) U/L 20 ALT (14-59) U/L 25 Alkaline Phosphatase (46-116) U/L 125 H Troponin I (<or=51) ng/L < 4 Total Protein (6.4-8.2) g/dL 7.7 Albumin (3.4-5.0) g/dL 4.3 Medical Decision Making Patient is a pleasant 63 tyear old female, accompanied by brother, with c/c of recurrent CP. Has been seen here in the recent past for the same. Was also seen in [place]. She has no cardiac hx but fdather and brother both have hx of ACS, brother in 50s-60s. She states that pain is worse when waking in the morning. Finds she has some dizzy spells, especially when standing. Has been checking her BP several times daily and has had associated anxiety. She is noticed that her blood pressure has been consistently low for Joe in the morning especially when she is just waking and getting out of bed. She reports this is the time when she is most likely to feel slightly lightheaded. This also times when she has some of her chest discomfort and anxiety. Chest discomfort comes under the left breast. No rashes. No shortness of breath. Patient reports that she is quite active outside and has not had any symptoms when she is active. She feels that the symptoms have been more notable since she was diagnosed with COVID although she reports that her illness seem to be quite short in duration and unremarkable. On exam, patient appears anxious otherwise nontoxic. She is hemodynamically stable. If anything, at this time her blood pressures elevated at 159/77. Lungs are clear, normal cardiac exam. She is 2+ distal pulses in her extremities. No lower extremity edema or calf tenderness. Abdominal exam is benign. No carotid bruits. Probably concern at this time for orthostatic hypotension as the patient has some dizziness, lightheadedness during times to going from sitting to standing, particular for Joe in the morning. This is also when she experiences her other symptoms. Chest seems quite anxious and has been struggling with this. I did review her medications and consider her medications contributing to her hypotension. However, timing does not really make sense with this. It sounds like she is experiencing new onset orthostatic hypotension post-COVID. Patient reports that she has had a stress test was been several years. She is new to the area and will need to establish with local primary care. Is also requesting follow-up with cardiology in locally. I do not see any indication to suggest aortic dissection. Symptoms unlikely to be ACS but will obtain troponin COVID today given family history. ECG reviewed, no acute abnormality appreciated. Labs reviewed. Leukocytosis, stable H&H. CMP without significant abnormality. Troponin negative x 2. Imaging without acute abnormality. Discussed his findings with the patient. Advised likely orthostatic hypotension and anxiety. Also considered other chronic process but did encourage that she discuss this further with primary care. Have referred her to local primary care. Have asked her primary care to also consider referring her for cardiology follow-up as well as stress testing. Patient was given strict return precautions. We discussed preventative measures and safety measures. All of her questions and concerns were addressed and patient is agreement this plan. Given her family history, we did discuss beginning daily aspirin which she is amenable to. Patient was given dose here today. This documentation was generated using DoubleVerifyation system, please disregard any oddities of phrase or misspellings. Quality:SDOH Health Related Social Needs: No Data to Display PFSH All Active Problems (Updated 03/17/24 @ 14:43 by MARLO Green) COVID-19 (Acute) Anxiety (Chronic) Chest discomfort (Acute) Lightheadedness (Acute) Orthostatic hypotension (Acute) Social History Smoking/Tobacco Use Status: Current every day Tobacco Type: cigarettes Smoking risk assessment performed?: Yes Alcohol Intake: never Drug use: Never Substance use type: does not use Do you feel safe at home: Yes Do you feel safe in your relationship?: Yes
[2024-03-17 14:21] LABS: Troponin I 5 ng/L (<or=51)
== END 2024-03-17 14:50 | disposition home or self-care (01) ==
PROVIDERS: Emergency Provider Physician Assistant
DX: R07.89 Other chest pain (principal); R42 Dizziness and giddiness; I95.1 Orthostatic hypotension; F41.9 Anxiety disorder, unspecified
CPT/HCPCS: 36415; 80053; 93005; 99284; 71046; 83735; 84484; 85025; 93010; 99283

== ENCOUNTER 2024-05-14 11:30 | Outpatient (CLI) | payer MEDICARE, SELFPAY ==
[2024-05-14 13:25] LABS: FREE T4 1.06 ng/dL (0.76-1.46); TSH 7.68 uIU/mL (0.36-3.74)
[2024-05-14 18:14] LABS: T3, Total 109 ng/dL (97-169)
== END 2024-05-14 11:31 | disposition home or self-care (01) ==
LOC: LBO 11:33
PROVIDERS: Visit Provider Internal Medicine
DX: E89.0 Postprocedural hypothyroidism (principal); C73 Malignant neoplasm of thyroid gland
CPT/HCPCS: 36415; 84439; 84443; 84480

== ENCOUNTER 2024-09-30 04:02 | Outpatient (CLI) | payer MEDICARE, SELFPAY ==
[2024-09-30 11:29] LABS: FREE T4 1.17 ng/dL (0.76-1.46); TSH 3.61 uIU/mL (0.36-3.74)
== END 2024-09-30 04:03 | disposition home or self-care (01) ==
LOC: LBO 04:02
PROVIDERS: Visit Provider Internal Medicine
DX: E89.0 Postprocedural hypothyroidism (principal); Z85.850 Personal history of malignant neoplasm of thyroid
CPT/HCPCS: 36415; 84439; 84443

== ENCOUNTER 2024-09-30 08:18 | Emergency (ER) | payer MEDICARE, SELFPAY ==
[2024-09-30] VITALS (71 sets, daily range): BP systolic 114–227; BP diastolic 59–93; PULSE 63–90; RESP 10–25; TEMP 36.6; O2SAT 97–100
--- NOTE | 2024-09-30 08:15 | RT.EKG_ITS ---
APPROVED REPORT Exam: Resting ECG Reason for Exam: chest pain Patient Location: E HR:74 bpm ECG Measurements Heart Rate 74 AXIS OR 155 P 74 QRSd 102 QRS 70 QT 417 T 69 QTc 464 Conclusion Sinus rhythm...normal P axis, V-rate 60- 99 Ventricular premature complex...V complex w/ short R-R interval Abnrm R prog, consider ASMI or lead placement...Q >30mS, diminished R, V1-V2
--- NOTE | 2024-09-30 08:23 | W.ED.GENAD ---
Discharge Plan Discharge Details Chief Complaint: Chest Pain Primary Care Provider: Unknown,Unknown ED Provider: Brenda Bell Home Meds and New Rx's Prescriptions: No Action levothyroxine 137 mcg Tablet 110 mcg PO DAILY atorvastatin 10 mg Tablet 10 mg PO QHS potassium chloride 10 mEq Tablet Extended Release 10 meq PO DAILY Centrum 18-400 mg-mcg Tablet 1 tab PO DAILY alprazolam 0.25 mg tablet 0.25 mg PO TID Patient Comments: Ran out yesterday 09/30/24 HPI General Date/Time Provider Initiated Documentation: 09/30/24 08:19. HPI Narrative: Priya is a 64 year old female who presents to the emergency department today for evaluation of episode of left-sided chest pain that radiated into the left side of her neck and a hot/shooting sensation. This occurred yesterday, lasted for couple of hours, she is not sure what she was doing whenever started. No obvious aggravating or alleviating factors. No other accompanying symptoms. She also reports that she had had persistent left-sided chest pain for 8 months, described as heavy and sharp, occurring daily regardless of activity. She reports occasional difficulty breathing during chest pain episodes, possibly anxiety-related. Also has had recurrent headaches daily that respond to Tylenol and persistent sharp abdominal pain that comes and goes, often daily. This has been ongoing for the last 8 months, attributed to post-COVID. Admits to occasional mild GERD symptoms. Denies vision changes, recent illness (congestion, sore throat, cough), vomiting, pain with urination, change in bowel or bladder function, new extremity weakness, pedal edema/calf redness/20/tenderness, hormone use, recent surgery/immobility, recent history of malignancy, history of blood clots. Past medical history is significant for HLD (treated with atorvastatin), HTN (not currently on antihypertensives, says blood pressure has vacillated to being very low at times), and acquired hypothyroidism due to thyroid cancer (on levothyroxine). She does have a history of anxiety, ran out of her alprazolam 0.25 mg which she takes at least daily; this was prescribed by her PCP in [place]. She currently lives in [place], would like to have care established [facility]. She does admit to tobacco use. Denies history of cardiac disease or lung disease; FMH significant for father and brother both have hx of ACS, brother in 50s-60s. Physical exam reassuring.Priya is visibly anxious, tremulous during exam but appropriately interactive. Easy work of breathing, lung sounds clear bilaterally. Normal heart sounds. Abdomen is soft, nondistended, nontender to palpation. Slightly tacky mucous membranes, clear voice. No JVD or pedal edema. D/dx includes but is not limited to: ACS, palpitations, electrolyte imbalance, thyroid hormone imbalance, GERD, anxiety, esophagitis, long COVID; PNA or pneumothorax less likely based on intermittant symptoms. No red flags concerning for PE (no tachycardia, hypoxia, shortness of breath, persistent chest pain, concerning history, or symptoms of DVT). Heart score 4, indicating moderate risk of Mace, mostly due to age and risk factors. I independently interpreted the following tests: EKG shows normal sinus rhythm, rate 74. Ectopic beat noted, otherwise no abnormalities. Normal intervals. No changes consistent with acute ischemia. CBC, CMP, lipase, magnesium all reassuring. Troponin undetectable, less than 4. UA unremarkable, not consistent with UTI. No infiltrates or cardiomegaly noted on chest x-ray, this was confirmed by radiologist While in the emergency department, Priya received home dose of alprazolam for anxiety and famotidine for possible esophagitis/GERD. She reports feeling a bit better. Overall cardiac workup today very reassuring, unclear etiology of chest discomfort, recommend further outpatient follow-up with primary care. Referral was placed to primary care for further evaluation and management of symptoms, including long COVID. Reviewed discharge instructions with patient, including symptomatic management and red flags indicating need for return to emergency care. She voices agreement with plan of care. Related Data Home Medications ?Medication ?Instructions ?Recorded ?Confirmed atorvastatin 10 mg tablet 10 mg PO QHS 12/02/20 09/30/24 levothyroxine 137 mcg tablet 110 mcg PO DAILY 12/02/20 09/30/24 multivitamin-ferrous 1 tab PO DAILY 12/02/20 09/30/24 fumarate-folic acid 18 mg-400 mcg tablet (Centrum) potassium chloride 10 mEq 10 meq PO DAILY 12/02/20 09/30/24 tablet,extended release alprazolam 0.25 mg tablet 0.25 mg PO TID 03/17/24 09/30/24 Allergies Allergy/AdvReac Type Severity Reaction Status Date / Time codeine AdvReac Unknown Unverified 09/30/24 08:25 General TAYLOR: 3 Review of Systems Narrative: see HPI Exam Const General: cooperative, healthy appearing, comfortable, well developed and anxious Nutritional Appearance: average body habitus and well nourished Orientation: alert and oriented x3 HENMT Head: normal to inspection General nose exam: external nose normal Mouth: oral mucosae normal and other (slightly tacky MM) Neck Neck: normal visual inspection Resp Effort & Inspection: normal respiratory effort and able to speak in complete sentences Auscultation: clear to auscultation bilaterally Cardio Jugular venous pressure: no JVD Rate: regular rate Rhythm: regular rhythm Pulses: radial pulses present GI Inspection: normal to inspection and non-distended Palpation: soft, not firm, no guarding, not rigid and nontender Skin General skin exam: no rashes or lesions noted Extrem General: normal to inspection, no pedal edema and no calf tenderness Medical Decision Making Imaging Data Radiologic Study: Radiologist's impression: Exam(s) XR CHEST 2V PA LATERAL EXAM: XR CHEST 2V PA LATERAL CLINICAL HISTORY: Chest pain TECHNIQUE: 2D digital imaging was performed of the chest. Two images were obtained. PA and lateral views were obtained. COMPARISON: CR XR CHEST 2V PA LATERAL from 02/10/2024 CR XR CHEST 2V PA LATERAL from 03/17/2024 FINDINGS: MEDIASTINUM: Normal. HEART: Normal. PULMONARY VASCULATURE: Normal. LUNGS: Clear. PLEURAL SPACE: No pleural effusion or pneumothorax. BONE:Within normal limits for the patient's age. OTHER FINDINGS:Normal. IMPRESSION: No acute pulmonary findings. Quality:SDOH Health Related Social Needs: No Data to Display PFSH All Active Problems (Updated 03/17/24 @ 14:43 by MARLO Green) COVID-19 (Acute) Anxiety (Chronic) Chest discomfort (Acute) Lightheadedness (Acute) Orthostatic hypotension (Acute) Social History Smoking/Tobacco Use Status: Current every day Tobacco Type: cigarettes Smoking risk assessment performed?: Yes Alcohol Intake: never Drug use: Never Substance use type: does not use Do you feel safe at home: Yes Do you feel safe in your relationship?: Yes
[2024-09-30 08:59] LABS: Abs Immature Grans 0.04 10^3/uL (0.0-0.06); Absolute Basophil Count 0.04 10^3/uL (0.0-0.2); Absolute Eosinophil Count 0.04 10^3/uL (0.0-0.7); Absolute Lymphocyte Count 1.17 10^3/uL (1.2-3.4); Absolute Monocyte Count 0.43 10^3/uL (0.1-0.8); Basophils % 0.4 %; Eosinophils % 0.4 %; HCT 43.4 % (36.0-46.0); Immature Grans % 0.4 %; Lymphocytes % 11.6 %; MCH 31.7 pg (27.0-33.0); MCHC 34.6 % (32.0-36.0); MCV 92 fL (80-95); Monocytes % 4.2 %; Platelet Count 240 10^3/uL (130-400); RBC 4.73 10^6/uL (3.93-5.22); RDW 11.6 % (11.7-14.6); RDW-SD 39.3 fL; WBC 10.12 10^3/uL (4.4-10.8)
[2024-09-30] MEDS: ALPRAZolam 0.5 MG TAB 0.25 MG PO (09:01)
[2024-09-30] MEDS: Famotidine 20 MG TAB PO (09:01)
[2024-09-30 09:23] LABS: ALT 46 U/L (14-59); AST 31 U/L (15-37); Albumin 4.4 g/dL (3.4-5.0); Alkaline Phosphatase 134 U/L (46-116); Anion Gap 8.8 mmol/L (3-11); BUN 18 mg/dL (7-18); Bilirubin, Total 0.8 mg/dL (0.2-1.0); CO2 31.2 mmol/L (21.0-32.0); CREATININE 0.9 mg/dL (0.55-1.02); Chloride 104 mmol/L (98-107); Estimated GFR 70.95 (mL/min/1.73m2); Glucose 118 mg/dL (74-106); Lipase 31 U/L (<78); Magnesium 2.2 mg/dL (1.8-2.4); Potassium 3.8 mmol/L (3.5-5.1); Sodium 144 mmol/L (136-145); Total Protein 7.7 g/dL (6.4-8.2)
[2024-09-30 09:27] LABS: Troponin I < 4 ng/L (<or=51)
--- NOTE | 2024-09-30 09:27 | DI.RAD_ITS ---
Exam(s) XR CHEST 2V PA LATERAL EXAM: XR CHEST 2V PA LATERAL CLINICAL HISTORY: Chest pain TECHNIQUE: 2D digital imaging was performed of the chest. Two images were obtained. PA and lateral views were obtained. COMPARISON: CR XR CHEST 2V PA LATERAL from 02/10/2024 CR XR CHEST 2V PA LATERAL from 03/17/2024 FINDINGS: MEDIASTINUM: Normal. HEART: Normal. PULMONARY VASCULATURE: Normal. LUNGS: Clear. PLEURAL SPACE: No pleural effusion or pneumothorax. BONE:Within normal limits for the patient's age. OTHER FINDINGS:Normal. IMPRESSION: No acute pulmonary findings. DATA REPOSITORY: RADIATION DOSE DELIVERED:
[2024-09-30 10:00] LABS: Bilirubin Negative (Negative); Blood Negative (Negative); Clarity Clear (Clear); Glucose Negative (Negative); Ketones Negative (Negative); Leukocyte Esterase Negative (Negative); Nitrite Negative (Negative); Urobilinogen 0.2 mg/dL (Up to 0.2)
[2024-09-30 10:49] LABS: Troponin I < 4 ng/L (<or=51)
== END 2024-09-30 10:31 | disposition home or self-care (01) ==
PROVIDERS: Emergency Provider Nurse Practitioner Family
DX: R07.89 Other chest pain (principal); I10 Essential (primary) hypertension; E78.5 Hyperlipidemia, unspecified; E89.0 Postprocedural hypothyroidism; F41.9 Anxiety disorder, unspecified; F17.210 Nicotine dependence, cigarettes, uncomplicated
CPT/HCPCS: 36415; 80053; 83690; 93005; 99285; 71046; 81003; 83735; 84439; 84443; 84484; 85025; 93010; 99284